=== PATIENT | female | born 1985 | race Caucasian/White ===

== ENCOUNTER 2016-04-26 12:03 | Inpatient (IN) | payer OTHER, MEDICAID ==
[2016-04-26 12:43] LABS: Urine Bilirubin Negative (Negative); Urine Glucose Negative (Negative); Urine Nitrite Negative (Negative)
[2016-04-26 13:03] LABS: Benzodiazepine Urine Screen None Detected (None Detect)
[2016-04-26 13:07] LABS: Hematocrit 40 % (35-47); Hemoglobin 13.5 g/dl (12.0-16.0); Mean Corpuscular HGB Conc 34 g/dl (31-36); Mean Corpuscular Hemoglobin 30 pg (27-31); Mean Corpuscular Volume 90 fL (80-97); Mean Platelet Volume 8 um3 (7.4-10.4); Red Blood Count 4.47 10^6/ul (4.0-5.4); Red Cell Distribution Width 13 % (10.5-15); White Blood Count 9.4 10^3/ul (3.5-10.8)
[2016-04-26 13:26] LABS: ALT 8 U/L (7-52); AST 14 U/L (13-39); Albumin 4.5 g/dL (3.2-5.2); Alkaline Phosphatase 66 U/L (34-104); Anion Gap 6 mmol/L (2-11); BUN/Creatinine Ratio 14.5 (8-20); Blood Urea Nitrogen 9 mg/dL (6-24); CO2 Carbon Dioxide 24 mmol/L (22-32); Calcium 9.5 mg/dL (8.6-10.3); Chloride 105 mmol/L (101-111); EGFR African American 142.6 (>60); EGFR Non-African American 110.9 (>60); Globulin 2.8 g/dL (2-4); Glucose 98 mg/dL (70-100); Potassium 3.8 mmol/L (3.5-5.0); Sodium 135 mmol/L (133-145); Total Protein 7.3 g/dL (6.4-8.9)
[2016-04-26 13:35] LABS: Acetaminophen < 15 mcg/mL; Alcohol < 10 mg/dL (<10); Salicylate < 2.50 mg/dL (<30)
[2016-04-26 13:45] LABS: TSH (Thyroid Stimulating Horm) 0.38 mcIU/mL (0.34-5.60)
[2016-04-26] MEDS ORDERED: Acetaminophen TAB* 325 MG PO PRN (16:27)
[2016-04-26] MEDS ORDERED: Al Hydrox/Mg Hydrox/Simet LIQ* 30 ML UDC PO PRN (16:27)
[2016-04-26] MEDS ORDERED: Haloperidol TAB* 5 MG PO PRN (16:30)
[2016-04-26] MEDS ORDERED: LORazepam TAB(*) 1 MG PO PRN (16:30)
--- NOTE | 2016-04-26 17:44 | ED ---
Nir Jauregui Karl, scribed for Ozzy Fontaine MD on 04/26/16 at 1225 . Psychiatric Complaint - HPI Summary HPI Summary: Pt is a 31 y/o female 941 brought in by police. Pt reportedly called the police and said that her had held up a box office clerk to her throat earlier this morning. Pt has an extensive hx of schizophrenia. - History Of Current Complaint Chief Complaint: EDMentalHealth Time Seen by Provider: 04/26/16 12:18 Hx Obtained From: Other: - Police Hx Last Menstrual Period: 03/19/15 Onset/Duration: Sudden Onset Timing: Constant Severity Initially: Moderate Severity Currently: Moderate Related History: Positive For: Prior Psychiatric Issues - Allergies/Home Medications Allergies/Adverse Reactions: Allergies Allergy/AdvReac Type Severity Reaction Status Date / Time No Known Allergies Allergy Verified 11/15/14 16:12 PMH/Surg Hx/FS Hx/Imm Hx Psychiatric History: Reports: Hx Schizophrenia Infectious Disease History: No Infectious Disease History: Denies: Traveled Outside the [place] in Last 30 Days - Social History Alcohol Use: None Substance Use Type: Reports: None Smoking Status (MU): Former Smoker - Additional Comments History Additional Comments: Full PMHx was limited because pt was immediately seen for a mental health evaluation Review of Systems Constitutional: Negative Eyes: Negative ENT: Negative Cardiovascular: Negative Respiratory: Negative Gastrointestinal: Negative Genitourinary: Negative Musculoskeletal: Negative Skin: Negative Neurological: Negative Psychological: Other - schizophrenic episode All Other Systems Reviewed And Are Negative: Yes Physical Exam Triage Information Reviewed: Yes Vital Signs On Initial Exam: Initial Vitals Temp Pulse Resp BP Pulse Ox 99.0 F 82 16 137/84 100 04/26/16 12:17 04/26/16 12:17 04/26/16 12:17 04/26/16 12:17 04/26/16 12:17 Vital Signs Reviewed: Yes Appearance: Positive: Well-Appearing, No Pain Distress Skin: Positive: Warm, Skin Color Reflects Adequate Perfusion, Dry Head/Face: Positive: Normal Head/Face Inspection Eyes: Positive: EOMI, SAMM ENT: Positive: Normal ENT inspection Neck: Positive: Supple, Nontender Respiratory/Lung Sounds: Positive: Clear to Auscultation, Breath Sounds Present Cardiovascular: Positive: RRR Abdomen Description: Positive: Nontender, Soft Bowel Sounds: Positive: Present Musculoskeletal: Positive: Normal, Strength/ROM Intact Neurological: Positive: Normal, Sensory/Motor Intact, Alert, Oriented to Person Place, Time Psychiatric: Positive: Affect/Mood Appropriate Diagnostics - Vital Signs Vital Signs Temp Pulse Resp BP Pulse Ox 04/26/16 12:17 99.0 F 82 16 137/84 100 - Laboratory Lab Results: Lab Results 04/26/16 04/26/16 04/26/16 Range/Units 12:25 12:25 12:55 WBC 9.4 (3.5-10.8) 10^3/ul RBC 4.47 (4.0-5.4) 10^6/ul Hgb 13.5 (12.0-16.0) g/dl Hct 40 (35-47) % MCV 90 (80-97) fL MCH 30 (27-31) pg MCHC 34 (31-36) g/dl RDW 13 (10.5-15) % Plt Count 256 (150-450) 10^3/ul MPV 8 (7.4-10.4) um3 Neut % (Auto) 77.6 (38-83) % Lymph % (Auto) 16.8 L (25-47) % [place] % (Auto) 5.0 (1-9) % Eos % (Auto) 0.2 (0-6) % Baso % (Auto) 0.4 (0-2) % Absolute Neuts (auto) 7.3 (1.5-7.7) 10^3/ul Absolute Lymphs (auto) 1.6 (1.0-4.8) 10^3/ul Absolute Monos (auto) 0.5 (0-0.8) 10^3/ul Absolute Eos (auto) 0 (0-0.6) 10^3/ul Absolute Basos (auto) 0 (0-0.2) 10^3/ul Absolute Nucleated RBC 0.01 10^3/ul Nucleated RBC % 0.1 Sodium (133-145) mmol/L Potassium (3.5-5.0) mmol/L Chloride (101-111) mmol/L Carbon Dioxide (22-32) mmol/L Anion Gap (2-11) mmol/L BUN (6-24) mg/dL Creatinine (0.51-0.95) mg/dL Est GFR ( Amer) (>60) Est GFR (Non-Af Amer) (>60) BUN/Creatinine Ratio (8-20) Glucose (70-100) mg/dL Calcium (8.6-10.3) mg/dL Total Bilirubin (0.2-1.0) mg/dL AST (13-39) U/L ALT (7-52) U/L Alkaline Phosphatase (34-104) U/L Total Protein (6.4-8.9) g/dL Albumin (3.2-5.2) g/dL Globulin (2-4) g/dL Albumin/Globulin Ratio (1-3) TSH (0.34-5.60) mcIU/mL Beta HCG, Quant mIU/mL Urine Color Straw Urine Appearance Clear Urine pH 5.0 (5-9) Ur Specific [place] 1.005 L (1.010-1.030) Urine Protein Negative (Negative) Urine Ketones Negative (Negative) Urine Blood Negative (Negative) Urine Nitrate Negative (Negative) Urine Bilirubin Negative (Negative) Urine Urobilinogen Negative (Negative) Ur Leukocyte Esterase Negative (Negative) Urine Glucose Negative (Negative) Salicylates (<30) mg/dL Urine Opiates Screen None detected (None Detect) Acetaminophen mcg/mL Ur Barbiturates Screen None detected (None Detect) Ur Phencyclidine Scrn None detected (None Detect) Ur Amphetamines Screen None detected (None Detect) U Benzodiazepines Scrn None detected (None Detect) Urine Cocaine Screen None detected (None Detect) U Cannabinoids Screen None detected (None Detect) Serum Alcohol (<10) mg/dL 04/26/16 Range/Units 12:55 WBC (3.5-10.8) 10^3/ul RBC (4.0-5.4) 10^6/ul Hgb (12.0-16.0) g/dl Hct (35-47) % MCV (80-97) fL MCH (27-31) pg MCHC (31-36) g/dl RDW (10.5-15) % Plt Count (150-450) 10^3/ul MPV (7.4-10.4) um3 Neut % (Auto) (38-83) % Lymph % (Auto) (25-47) % [place] % (Auto) (1-9) % Eos % (Auto) (0-6) % Baso % (Auto) (0-2) % Absolute Neuts (auto) (1.5-7.7) 10^3/ul Absolute Lymphs (auto) (1.0-4.8) 10^3/ul Absolute Monos (auto) (0-0.8) 10^3/ul Absolute Eos (auto) (0-0.6) 10^3/ul Absolute Basos (auto) (0-0.2) 10^3/ul Absolute Nucleated RBC 10^3/ul Nucleated RBC % Sodium 135 (133-145) mmol/L Potassium 3.8 (3.5-5.0) mmol/L Chloride 105 (101-111) mmol/L Carbon Dioxide 24 (22-32) mmol/L Anion Gap 6 (2-11) mmol/L BUN 9 (6-24) mg/dL Creatinine 0.62 (0.51-0.95) mg/dL Est GFR ( Amer) 142.6 (>60) Est GFR (Non-Af Amer) 110.9 (>60) BUN/Creatinine Ratio 14.5 (8-20) Glucose 98 (70-100) mg/dL Calcium 9.5 (8.6-10.3) mg/dL Total Bilirubin 0.50 (0.2-1.0) mg/dL AST 14 (13-39) U/L ALT 8 (7-52) U/L Alkaline Phosphatase 66 (34-104) U/L Total Protein 7.3 (6.4-8.9) g/dL Albumin 4.5 (3.2-5.2) g/dL Globulin 2.8 (2-4) g/dL Albumin/Globulin Ratio 1.6 (1-3) TSH 0.38 (0.34-5.60) mcIU/mL Beta HCG, Quant 27705.00 mIU/mL Urine Color Urine Appearance Urine pH (5-9) Ur Specific [place] (1.010-1.030) Urine Protein (Negative) Urine Ketones (Negative) Urine Blood (Negative) Urine Nitrate (Negative) Urine Bilirubin (Negative) Urine Urobilinogen (Negative) Ur Leukocyte Esterase (Negative) Urine Glucose (Negative) Salicylates < 2.50 (<30) mg/dL Urine Opiates Screen (None Detect) Acetaminophen < 15 mcg/mL Ur Barbiturates Screen (None Detect) Ur Phencyclidine Scrn (None Detect) Ur Amphetamines Screen (None Detect) U Benzodiazepines Scrn (None Detect) Urine Cocaine Screen (None Detect) U Cannabinoids Screen (None Detect) Serum Alcohol < 10 (<10) mg/dL Result Diagrams: 04/26/16 12:55 04/26/16 12:55 Lab Statement: Any lab studies that have been ordered have been reviewed, and results considered in the medical decision making process. Course/Dx - Course Assessment/Plan: Pt cleared for mental health evaluation at 12:30. ADMIT MHU STABLE - Differential Dx/Clinical Impression Provider Diagnosis: Mental health problem Discharge - Discharge Plan Condition: Stable [place] [place]: No Primary Care Phys,NOPCP [Primary Care Provider] - The documentation as recorded by the Nir dsouza Karl accurately reflects the service I personally performed and the decisions made by me, Ozzy Fontaine MD.
[2016-04-26] MEDS ORDERED: Lithium Carbonate ER* 450 MG TAB.ER PO SCH (21:00)
[2016-04-27] MEDS ORDERED: Vitamin THERAPEUTIC TAB PO SCH (09:00)
--- NOTE | 2016-04-27 12:25 | HP ---
DATE OF ADMISSION: 04/26/2016. DATE OF EVALUATION: 04/27/2016. IDENTIFICATION: Sunita Connors is a 31-year-old woman who reportedly carries a historical diagnosis of schizoaffective disorder, bipolar type, who has been admitted to the unit due to safety concerns raised by her report to police of her holding a knife to her throat at the end of a dispute over washing the dishes. She has had about ten psychiatric hospitalizations per her reckoning. Her parents report she was first hospitalized for a psychotic break in 2004 following smoking marijuana for the first time. She has a very poor memory for events and is a poor historian and is denying most psychiatric symptoms. HISTORY OF PRESENT ILLNESS: Information was gathered by interview of the patient and review of the electronic medical record. Ms. Connors states that she has been disappointment with the love she is getting from her , and that she also feels she does not know herself well and this is contributing to the current situation. She is making only furtive eye contact for moments at a time. She is slow to gather her thoughts and somewhat tangential in her reports. She is an unreliable historian. On review of psychiatric symptoms, she reports that her mood is fine. That she is not depressed. That she is not having any anhedonia, that she still enjoys singing, dancing, art, eating, taking cat naps. She denies feeling worthless or guilty. She reports that her sleep is "fine" and that she is rested after getting about eight hours of sleep a night with no shift of her sleep schedule. She reports that her energy is "very well." Her appetite she reports as "big. " She denies any difficulties with concentration or decision making. She states that she is more hopeful than hopeless. She denies any suicidal ideation at any time in her life. She names as a cruz stressor currently the relationship with her which she feels has cooled since their marriage in 2012. She denies ever any manic symptoms of grandiosity, euphoria, irritability, racing thoughts, talking fast, decreased need for sleep, or increased impulsivity. She reports that her anxiety is an average personal dose of hellish anxiety. She is unable to give me a numerical rating. At the same time, however, she states that she is not feeling particularly anxious here. She denies ever any panic attacks. She denies ever any trauma or PTSD symptoms of nightmares, flashbacks, avoidance , hypervigilance or numbing. She does report that she has overconcern about germs and will wash her hands whenever she has contact with contaminates, but again is unable to state to me any sort of estimate of the number of times that she washes her hands in the day. She denies any auditory or visual hallucinations or paranoid ideation. Again, her report is entirely minimizing of symptoms and does not match with her presentation as distracted, as slow to respond to questions as though she is attending to internal stimuli, and as somewhat constricted in her affect. MENTAL STATUS EXAMINATION: This is a woman in hospital scrubs with average grooming and hygiene, though moderately disheveled. She makes virtually no eye contact. Her speech has regular rate and rhythm, but somewhat low volume but audible and comprehensible, even in the background noise of the milieu. She is alert and oriented to person and place. She has a tangential and marginally organized thought process. She does appear to be distracted by internal stimuli. Her report of symptoms to questioning are that her mood is "fine," that she is not hearing or seeing any voices or visions, that she is not paranoid, that she does not have any thoughts to harm herself or others. She does, however, appear to be responding to internal stimuli. She presents with impaired insight and judgment. Her impulse control is intact. PAST PSYCHIATRIC HISTORY: She estimates about ten psychiatric hospitalizations , but states that she has "no idea when" and no idea where. She reports that hospitalizations "just disappear from my memory." She does report that her last prescriber was a doctor in [place]. She does not remember if it was a psychiatrist or a primary care physician. Report from her parents are that she has been diagnosed in the past with schizoaffective disorder with onset of psychotic illness in 2004 after smoking marijuana for the first time. She has been on lithium: she cannot recall when she last took it. She also mentions Wellbutrin. She reports that it has been some time since she has taken these, but again her recall to me is quite vague. It is unclear when she took her last dose of any of these medications. She denies ever having harmed herself in any way. Her parents report that she was cutting herself in a psychotic effort to exit a world she felt trapped in during her first psychotic episode in 2004. She denies ever having suicidal ideation or having made a suicide attempt. PAST MEDICAL HISTORY: Denies any. Denies any traumatic brain injury, seizures , syncopal episodes or heart problems. PAST SURGICAL HISTORY: Denies any. MEDICATIONS AT ADMISSION: The patient has reported that she has not taken medications in months and this is recorded in the EMR as no known home medications at the time of admission. FAMILY PSYCHIATRIC HISTORY: She reports that she does not know of anybody in her family with a psychiatric history. SUBSTANCE ABUSE HISTORY: She denies any abuse of alcohol or illicit substances. She reports not drinking any caffeinated beverages. She does not smoke by her report. SOCIAL HISTORY: She grew up in [place], [place]. She was home schooled from kindergarten to the first grade, attended school for a year or two, then second grade through high school again home schooled. She reported that she learned that she "has a different learning style." She is . She reports having moved around a fair amount recently. Again, history is limited from her report. Her father reports that her is 6 years younger and has a history of 6 or so psychiatric hospitalizations. He reports that he and his were against the marriage, but that Carries husbands family supported the marriage, which has been troubled. He reports that his daughter left the home she shares with her and her husbands family on day and moved into temporary lodging in [place] supported by [facility]. LEGAL HISTORY: Denies any. HISTORY OF VIOLENCE. Denies any. PHYSICAL EXAMINATION Last physical examination was in the emergency department. It was documented there that she had an entirely normal physical examination. She has declined a repeat physical examination. She has denied any active symptoms on review of chest pain, shortness of breath, nausea, vomiting, constipation, diarrhea, pain , rash, dizziness, ringing in the ears, blurred vision. VITAL SIGNS: Recorded on 04/26/2016 at 12:17 p.m.: Temperature 99.0, pulse 82 , respiratory 16, blood pressure 137/84 with a pulse ox reading of 100 percent saturation of hemoglobin on room air. LABORATORY VALUES: CBC with differential unremarkable with only a slightly low lymphocyte percentage of 16.8, but otherwise entirely within normal limits. Comprehensive metabolic panel entirely within normal limits with a positive beta HCG quantitative serum test at 12,389. She is . Urinalysis found dilute urine to 1.005, but otherwise entirely within normal limits. Toxicology screen detected no substances of abuse in urine or serum. No salicylates, no acetaminophen. ASSESSMENT AND PLAN: Ms. Connors is a 31-year-old woman who has reportedly been hospitalized about ten times for schizoaffective disorder, bipolar type, per report to the emergency department dock clerk by her parents. She is , and this will pose some challenges for her treatment here. I will ask an conveyor maintenance mechanic here to come to meet with her to talk about the risks of medications that would be beneficial for treatment of her exacerbation of her schizoaffective disorder, including lithium, Seroquel, Zyprexa and other antipsychotic medications, also antidepressant medications. I would like for her to hear from an expert in the effects of these medications on development so that she can make a fully informed decision as to how she would want to treat her exacerbation of illness at the same time as she carries her to term, which she says she wants to do. Her time away from her from September to February may raise issues with regard to paternity depending on the result of an U/S. We will be gathering further collateral from the family. We will be encouraging her to make use of the therapeutic milieu and groups. Aftercare will likely be to a community health clinic. DIAGNOSIS: Schizoaffective disorder, bipolar type. [id number]/[facility] #: [id number] RHIANNON
[2016-04-27] MEDS ORDERED: QUEtiapine TAB* 100 MG PO SCH (21:00)
[2016-04-28] MEDS ORDERED: QUEtiapine TAB* 100 MG PO SCH (14:08)
--- NOTE | 2016-04-28 14:11 | PN ---
Subjective - Subjective Service Type: 90194 Hosp care 15 min low complexity Subjective: Sunita appears somewhat confused. She reports all is well. She does not have much else to report. She agrees to increased dose of Seroquel to 150 mg tonight. Spoke with her father again. Texted him patient phone number to speak with Sunita, and unit fax number to send us a synopsis of her psychiatric care. Objective - Appearance Appearance: Well Developed/Nourished, Healthy Appearing Dysmorphic Features: No Hygiene: Normal Grooming: Well Kept - Behavior Psychomotor Activities: Normal Exhibits Abnormal Movement: No - Attitude and Relatedness Attitude and Relatedness: Cooperative Eye Contact: Poor - Speech Quality: Unpressured Latencies: Normal Quantity: Terse - Mood Patient's Decription of Mood: "Fine" - Affect Observed Affect: Unvariable Affect Consistent with: Euthymia - Thought Process Patient's Thought Process: Coherent, Goal Directed Thought Content: No Passive Wish, No Suicidal Planning, No Homicidal Ideation, No Paranoid Ideation - Sensorium Experiencing Hallucinations: No, Sensorium is Clear Type of Hallucinations: Visual: No, Auditory: No, Command: No - Level of Consciousness Level of Consciousness: Alert Orientation: Yes Intact, Yes Orientated to Time, Yes Orientated to Place, Yes Orientated to Person - Impulse Control Impulse Control: Intact - Insight and Judgement Insight and Judgement: Impaired - Group Participation Particating in Group Activities: Yes - Medication Management Medication Management Adherence: Yes Assessment - Assessment Merits Inpatient Hospitalization: For Immediate Safety, For Stabilization, To Initiate Treatment, For Ongoing Evaluation, For Discharge Planning, Pending Safe DC Plan Inpatient DSM-IV Dx: Schizoaffective disorder, bipolar type. Clinical Impression: Ms. Davies is a 31-year-old woman who has reportedly been hospitalized about ten times for schizoaffective disorder, bipolar type, per report to the emergency department efficiency analyst by her parents. She is , and this will pose some challenges for her treatment here. I will ask an patient insurance clerk here to come to meet with her to talk about the risks of medications that would be beneficial for treatment of her exacerbation of her schizoaffective disorder, including lithium, Seroquel, Zyprexa and other antipsychotic medications, also antidepressant medications. I would like for her to hear from an expert in the effects of these medications on development so that she can make a fully informed decision as to how she would want to treat her exacerbation of illness at the same time as she carries her to term, which she says she wants to do. Her time away from her from September to February may raise issues with regard to paternity depending on the result of an U/S. We will be gathering further collateral from the family. We will be encouraging her to make use of the therapeutic milieu and groups. Aftercare will likely be to a [facility]. 04.28.16 Sunita today appears calm but vacant. She has little to say in response to questions and offers no spontaneous communication. Awaiting effect of Seroquel as we titrate up dose. Awaiting collateral fax from parents this evening. Plan - Plan Treatment Plan: Name: SUNITA DAVIES Birthdate: 1985 [id number] Titrate up Seroquel dose to 150 mg tonight. Gather collateral. Monitor MS and safety. Encourage groups/milieu. Dispo pending per dialogue with current codomicilers and referral to outpatient care. Medications: Current Medications Quetiapine Fumarate (Seroquel Tab*) 100 mg PO BEDTIME REGI Last Admin: 04/27/16 21:38 Dose: 100 mg - Discharge Plan Discharge Plan: Outpatient Follow Up
[2016-04-29] MEDS: Prenatal Vitamin TAB PO SCH (12:28)
--- NOTE | 2016-04-29 14:10 | PN ---
Subjective - Subjective Service Type: 32127 Hosp care 15 min low complexity Subjective: Sunita remains flat and poorly responsive, but shows some slight signs of improvement in comprehension and response to questions. Objective - Appearance Appearance: Healthy Appearing Dysmorphic Features: No Hygiene: Normal Grooming: Fairly Well Kept - Behavior Psychomotor Activities: Abnormal-Decreased - sits idly much of day Exhibits Abnormal Movement: No - Attitude and Relatedness Attitude and Relatedness: Withdrawn Eye Contact: Poor - Speech Quality: Unpressured Latencies: Normal Quantity: Terse - Mood Patient's Decription of Mood: "Good" - Affect Observed Affect: Depressed Affect Consistent with: Dysphoria - Thought Process Patient's Thought Process: Impoverished Thought Content: No Passive Wish, No Suicidal Planning, No Homicidal Ideation, No Paranoid Ideation - Sensorium Experiencing Hallucinations: No, Sensorium is Clear Type of Hallucinations: Visual: No, Auditory: No, Command: No - Level of Consciousness Level of Consciousness: Alert - Impulse Control Impulse Control: Intact - Insight and Judgement Insight and Judgement: Impaired - Group Participation Particating in Group Activities: No - Medication Management Medication Management Adherence: Yes Assessment - Assessment Merits Inpatient Hospitalization: For Stabilization, For Ongoing Evaluation, Pending Safe DC Plan Inpatient DSM-IV Dx: Schizoaffective disorder, bipolar type. Clinical Impression: Ms. Davies is a 31-year-old woman who has reportedly been hospitalized about ten times for schizoaffective disorder, bipolar type, per report to the emergency department brand lead by her parents. She is , and this will pose some challenges for her treatment here. I will ask an central office technician here to come to meet with her to talk about the risks of medications that would be beneficial for treatment of her exacerbation of her schizoaffective disorder, including lithium, Seroquel, Zyprexa and other antipsychotic medications, also antidepressant medications. I would like for her to hear from an expert in the effects of these medications on development so that she can make a fully informed decision as to how she would want to treat her exacerbation of illness at the same time as she carries her to term, which she says she wants to do. Her time away from her from September to February may raise issues with regard to paternity depending on the result of an U/S. We will be gathering further collateral from the family. We will be encouraging her to make use of the therapeutic milieu and groups. Aftercare will likely be to a [facility]. 04.28.16 Sunita today appears calm but vacant. She has little to say in response to questions and offers no spontaneous communication. Awaiting effect of Seroquel as we titrate up dose. Awaiting collateral fax from parents this evening. 04.29.16 Remains calm with impoverished thought. Agrees to central office technician consult. Not attending groups, saying day room is locked when she tries to join groups. Compliant with Seroquel. Plan - Plan Treatment Plan: Name: SUNITA DAVIES Birthdate: 1985 [id number] Titrate up Seroquel dose to 200 mg tonight. Gather collateral. Monitor MS and safety. Encourage groups/milieu. Dispo pending per dialogue with current codomicilers and referral to outpatient care. Medications: Current Medications Multivitamins ( Vitamin Tab*) 1 tab PO DAILY [facility] Last Admin: 04/29/16 12:28 Dose: 1 tab Quetiapine Fumarate (Seroquel Tab*) 200 mg PO BEDTIME REGI - Discharge Plan Discharge Plan: Outpatient Follow Up
--- NOTE | 2016-04-29 14:51 | RAD ---
Indication: Early dating. Beta hCG 12,000. Unsure of LMP. Comparison: None. Technique: Transabdominal obstetrical ultrasound. Report: Single intrauterine gestational sac measuring 1.25 cm mean diameter corresponding to 6 weeks 0 days. Solitary pole visualized with 0.21 cm crown-rump length corresponding to 5 weeks 6 days. No movement or cardiac activity visualized which may be technical due to early gestational age. Negative for free pelvic fluid. 3.1 x 2.4 x 2.2 cm RIGHT ovary is remarkable for a moderately well-circumscribed grossly anechoic lesion measuring up to 1.6 x 1.1 x 1.5 cm which is immediately adjacent to a macroscopic calcification measuring up to 0.7 cm. A dermoid cyst is not excluded. The patient refused transvaginal exam for further assessment at this time. The LEFT ovary could not be visualized. No extra ovarian adnexal region lesions evident. IMPRESSION: 1. Solitary intrauterine gestation with AUA 6 weeks 0 days. Corresponding CAMRYN December 23, 2016. 2. No movement or cardiac activity visualized which may be technical due to early gestational age. Clinical and sonographic follow-up suggested. 3. Small cystic lesion and adjacent macroscopic calcification in the RIGHT ovary; a dermoid cyst is not excluded. Further assessment with transvaginal pelvic ultrasound when clinically feasible suggested. 4. The LEFT ovary could not be visualized. 5. No extra ovarian adnexal region lesions evident.
[2016-04-29] MEDS: QUEtiapine TAB* 100 MG PO SCH (20:18)
--- NOTE | 2016-04-29 23:28 | CONS ---
Amended report to enter date on report. CONSULT NOTE FOR OBSTETRICS: DATE: 04/29/2016. CHIEF COMPLAINT: Early . HISTORY OF PRESENT ILLNESS: This is a 31-year-old 1, para 0 who is admitted to the hospital on the psychiatric unit for a psychotic break. She has had multiple previous admissions based on the note from the Psychiatry. She apparently currently was not on any medications prior to her admission, currently being maintained on Seroquel and currently is still less than responsive or interactive. The patient was interviewed briefly and was not a good historian nor very communicative. Based on her ultrasound, she is approximately 5 weeks' with what looks like a viable and possible small dermoid cyst . OB has been mainly consulted to help with her medications and the patient and I did discuss her medications she has been on in the past and I explained the goals of therapy, which would be to keep her treated and not so depressed or psychotic that she is a danger to herself or others . Another goal would be that she is functional and can take part in her care. Other goals of treatment is to try to not use harmful medications and to get ongoing care. Currently, the Seroquel seems like a good choice as this is a single agent and it treats both depression and psychosis and from that perspective it sounds like a good choice. It seems to be relatively safe for early in . Her psychiatrist and I did discuss her use of lithium and I feel that this should be avoided . Other choices of Haldol would be used as necessary if you feel that the Seroquel is not helping her. Again, at this point, there is little else to do in care. I do not recommend any further ultrasounds during this hospitalization( provided it does not last more than a month) and if she need further help with managing her medications, please do not hesitate to contact the on-call employee services manager. We should be arranging followup once she is close to discharge. Please do not hesitate to contact the service if you have other questions. For now, we will not be rounding on her on a regular basis. [id number]/[facility] #: [id number] RHIANNON
[2016-04-30] MEDS: Prenatal Vitamin TAB PO SCH (09:22)
[2016-04-30] MEDS: QUEtiapine TAB* 100 MG PO SCH (20:23)
[2016-05-01] MEDS: Prenatal Vitamin TAB PO SCH (10:01)
--- NOTE | 2016-05-01 19:35 | PN ---
Subjective - Subjective Service Type: 44895 Hosp care 15 min low complexity Subjective: Sunita continues to isolative and guarded. Makes poor eye contact and reluctant to talk. Denies any physical or psychiatric issues. Objective - Appearance Appearance: Thin Framed Dysmorphic Features: No Hygiene: Normal Grooming: Fairly Well Kept - Behavior Psychomotor Activities: Abnormal-Decreased Exhibits Abnormal Movement: No - Attitude and Relatedness Attitude and Relatedness: Cooperative - Speech Quality: Unpressured Latencies: Long Quantity: Terse - Mood Patient's Decription of Mood: "Fine" - Affect Observed Affect: Constricted Affect Consistent with: Dysphoria - Thought Process Patient's Thought Process: Coherent, Goal Directed Thought Content: No Passive Wish, No Suicidal Planning, No Homicidal Ideation, No Paranoid Ideation - Sensorium Experiencing Hallucinations: No, Sensorium is Clear Type of Hallucinations: Visual: No, Auditory: No, Command: No - Level of Consciousness Level of Consciousness: Alert Orientation: Yes Intact, Yes Orientated to Time, Yes Orientated to Place, Yes Orientated to Person - Impulse Control Impulse Control: Intact - Insight and Judgement Insight and Judgement: Poor - Group Participation Particating in Group Activities: No - Medication Management Medication Management Adherence: Yes Assessment - Assessment Merits Inpatient Hospitalization: For Stabilization, For Ongoing Evaluation, Pending Safe DC Plan Inpatient DSM-IV Dx: Schizoaffective disorder, bipolar type. Plan - Plan Treatment Plan: Name: SUNITA DAVIES Birthdate: 1985 [id number] Continued Medication Management: Continue Outpt Medication Medications: Current Medications Multivitamins ( Vitamin Tab*) 1 tab PO DAILY [facility] Last Admin: 05/01/16 10:01 Dose: 1 tab Quetiapine Fumarate (Seroquel Tab*) 200 mg PO BEDTIME [facility] Last Admin: 04/30/16 20:23 Dose: 200 mg - Discharge Plan Discharge Plan: Outpatient Follow Up Outpatient Program: [facility]
[2016-05-01] MEDS: QUEtiapine TAB* 100 MG PO SCH (20:43)
--- NOTE | 2016-05-02 08:51 | PN ---
Subjective - Subjective Service Type: 07373 Hosp care 15 min low complexity Subjective: Reports without making any eye contact that her mood is 'good', that she is ' experiencing the newness of things', that she is having no troubles with the Seroquel. She agrees that she is not ready for discharge today. She did not want to talk about the situation with her . Objective - Appearance Appearance: Well Developed/Nourished, Healthy Appearing Dysmorphic Features: No Hygiene: Normal Grooming: Well Kept - Behavior Psychomotor Activities: Normal Exhibits Abnormal Movement: No - Attitude and Relatedness Attitude and Relatedness: Cooperative Eye Contact: Poor - Speech Quality: Unpressured Latencies: Normal Quantity: Terse - Mood Patient's Decription of Mood: "Good" - Affect Observed Affect: Unvariable Affect Consistent with: Dysphoria - Thought Process Patient's Thought Process: Impoverished Thought Content: No Passive Wish, No Suicidal Planning, No Homicidal Ideation, No Paranoid Ideation - Sensorium Experiencing Hallucinations: No, Sensorium is Clear Type of Hallucinations: Visual: No, Auditory: No, Command: No - Level of Consciousness Level of Consciousness: Alert Orientation: Yes Orientated to Place, Yes Orientated to Person - Impulse Control Impulse Control: Intact - Insight and Judgement Insight and Judgement: Impaired - Group Participation Particating in Group Activities: Yes - Medication Management Medication Management Adherence: Yes Assessment - Assessment Merits Inpatient Hospitalization: For Stabilization, To Initiate Treatment, For Ongoing Evaluation, For Discharge Planning, Pending Safe DC Plan Inpatient DSM-IV Dx: Schizoaffective disorder, bipolar type. Clinical Impression: Ms. Davies is a 31-year-old woman who has reportedly been hospitalized about ten times for schizoaffective disorder, bipolar type, per report to the emergency department government operations consultant by her parents. She is , and this will pose some challenges for her treatment here. I will ask an reading tutor here to come to meet with her to talk about the risks of medications that would be beneficial for treatment of her exacerbation of her schizoaffective disorder, including lithium, Seroquel, Zyprexa and other antipsychotic medications, also antidepressant medications. I would like for her to hear from an expert in the effects of these medications on development so that she can make a fully informed decision as to how she would want to treat her exacerbation of illness at the same time as she carries her to term, which she says she wants to do. Her time away from her from September to February may raise issues with regard to paternity depending on the result of an U/S. We will be gathering further collateral from the family. We will be encouraging her to make use of the therapeutic milieu and groups. Aftercare will likely be to a [facility] clinic. 04.28.16 Sunita today appears calm but vacant. She has little to say in response to questions and offers no spontaneous communication. Awaiting effect of Seroquel as we titrate up dose. Awaiting collateral fax from parents this evening. 04.29. Remains calm with impoverished thought. Agrees to reading tutor consult. Not attending groups, saying day room is locked when she tries to join groups. Compliant with Seroquel. 05.02.16 Attending about 1/2 of groups. Still virtually no eye contact, but slightly more engaged in interview. Med compliant. Calm and cooperative, but with impoverished thought. Plan - Plan Treatment Plan: Name: SUNITA DAVIES Birthdate: 1985 [id number] Titrate up Seroquel dose to 300 mg tonight. Gather collateral. Monitor MS and safety. Encourage groups/milieu. Dispo pending per dialogue with current codomicilers and referral to outpatient care. Medications: Current Medications Multivitamins ( Vitamin Tab*) 1 tab PO DAILY [facility] Last Admin: 05/01/16 10:01 Dose: 1 tab Quetiapine Fumarate (Seroquel Tab*) 200 mg PO BEDTIME [facility] Last Admin: 05/01/16 20:43 Dose: 200 mg - Discharge Plan Discharge Plan: Outpatient Follow Up
[2016-05-02] MEDS: Prenatal Vitamin TAB PO SCH (09:33)
[2016-05-02 10:01] LABS: Syphilis Index < 0.1 Index
[2016-05-02] MEDS: QUEtiapine TAB* 300 MG PO SCH (21:49)
[2016-05-03] MEDS: Prenatal Vitamin TAB PO SCH (09:06)
--- NOTE | 2016-05-03 17:32 | PN ---
Subjective - Subjective Service Type: 11504 Hosp care 15 min low complexity Subjective: Sunita continues to make no eye contact. She gives an 'all is well' report of good mood, no hallucinations or dangerous intent or plan. Reports spending her day stretching, resting, eating and taking naps. Father Murtaza called her 2 days ago, he says, and she hung up on him. Murtaza reports that she reached out to him and his yesterday to contact her to tell him she was discharging today. She is not ready for discharge today. Objective - Appearance Appearance: Healthy Appearing Dysmorphic Features: No Hygiene: Normal Grooming: Well Kept - Behavior Psychomotor Activities: Normal Exhibits Abnormal Movement: No - Attitude and Relatedness Attitude and Relatedness: Psychotically Related Eye Contact: Fair - Speech Quality: Unpressured Latencies: Normal Quantity: Appropriate - Mood Patient's Decription of Mood: "Good" - Affect Observed Affect: Unvariable Affect Consistent with: Dysphoria - Thought Process Patient's Thought Process: Impoverished Thought Content: No Passive Wish, No Suicidal Planning, No Homicidal Ideation, No Paranoid Ideation - Sensorium Experiencing Hallucinations: No, Sensorium is Clear Type of Hallucinations: Visual: No, Auditory: No, Command: No - Level of Consciousness Level of Consciousness: Alert Orientation: Yes Intact, Yes Orientated to Time, Yes Orientated to Place, Yes Orientated to Person - Impulse Control Impulse Control: Intact - Insight and Judgement Insight and Judgement: Poor - Group Participation Particating in Group Activities: No Group Participation Comments: Only larger, less psychotherapy-focused groups attended. - Medication Management Medication Management Adherence: Yes Assessment - Assessment Merits Inpatient Hospitalization: For Immediate Safety, For Stabilization, To Initiate Treatment, For Discharge Planning Inpatient DSM-IV Dx: Schizoaffective disorder, bipolar type. Clinical Impression: Ms. Davies is a 31-year-old woman who has reportedly been hospitalized about ten times for schizoaffective disorder, bipolar type, per report to the emergency department filter press tender by her parents. She is , and this will pose some challenges for her treatment here. I will ask an network systems operator here to come to meet with her to talk about the risks of medications that would be beneficial for treatment of her exacerbation of her schizoaffective disorder, including lithium, Seroquel, Zyprexa and other antipsychotic medications, also antidepressant medications. I would like for her to hear from an expert in the effects of these medications on development so that she can make a fully informed decision as to how she would want to treat her exacerbation of illness at the same time as she carries her to term, which she says she wants to do. Her time away from her from September to February may raise issues with regard to paternity depending on the result of an U/S. We will be gathering further collateral from the family. We will be encouraging her to make use of the therapeutic milieu and groups. Aftercare [facility] to a [facility] clinic. 04.28.16 Sunita today appears calm but vacant. She has little to say in response to questions and offers no spontaneous communication. Awaiting effect of Seroquel as we titrate up dose. Awaiting collateral fax from parents this evening. 04.29.16 Remains calm with impoverished thought. Agrees to network systems operator consult. Not attending groups, saying day room is locked when she tries to join groups. Compliant with Seroquel. 05.02.16 Attending about 1/2 of groups. Still virtually no eye contact, but slightly more engaged in interview. Med compliant. Calm and cooperative, but with impoverished thought. 05.03.16 Sunita has shown few signs of improving organization of thought and behavior. U/S shows a 6 week . No fax outlining history of psychiatric care received from parents. Plan - Plan Treatment Plan: Name: SUNITA DAVIES Birthdate: 1985 [id number] Asked her father to refax outline of psychiatric history. Continue Seroquel dose at 300 mg at bedtime. Gather collateral. Monitor MS and safety. Encourage groups/milieu. Dispo pending per dialogue with current codomicilers and referral to outpatient care. May not be quite ready for more productive conversation with network systems operator, will continue to consider this request to Ob- [employer] as patient shows signs of improved mental status. Medications: Current Medications Multivitamins ( Vitamin Tab*) 1 tab PO DAILY [facility] Last Admin: 05/03/16 09:06 Dose: 1 tab Quetiapine Fumarate (Seroquel Tab*) 300 mg PO BEDTIME [facility] Last Admin: 05/02/16 21:49 Dose: 300 mg - Discharge Plan Discharge Plan: Outpatient Follow Up
[2016-05-03] MEDS: QUEtiapine TAB* 300 MG PO SCH (21:17)
[2016-05-04] MEDS: Prenatal Vitamin TAB PO SCH (08:56)
[2016-05-04] MEDS: QUEtiapine TAB* 300 MG PO SCH (20:39)
[2016-05-05] MEDS: Prenatal Vitamin TAB PO SCH (08:36)
[2016-05-05] MEDS: QUEtiapine TAB* 300 MG PO SCH (21:03)
[2016-05-06] MEDS: Prenatal Vitamin TAB PO SCH (09:04)
--- NOTE | 2016-05-06 13:53 | PN ---
Subjective - Subjective Service Type: 99858 Hosp care 15 min low complexity Subjective: Sunita gives an 'all is well' subjective report, but with no eye contact and with subvocalizations between responses, which is new. Also offering 'may God Bless You' benedictions, also new. Vocal tone is flat now, more so than on admission. Parents have expressed concern about the apparent severity of the current psychotic break. Social work has gathered that her is planning divorce. She had nothing to say to me about this when I asked her about it. Objective - Appearance Appearance: Healthy Appearing Dysmorphic Features: No Hygiene: Normal Grooming: Fairly Well Kept - Behavior Psychomotor Activities: Abnormal-Decreased Exhibits Abnormal Movement: No - Attitude and Relatedness Attitude and Relatedness: Regressed Eye Contact: Poor - nearly absent in fact - Speech Quality: Unpressured Latencies: Normal Quantity: Terse - Mood Patient's Decription of Mood: "Fine" - Affect Affect Consistent with: Dysphoria - Thought Process Patient's Thought Process: Disorganized Thought Content: No Passive Wish, No Suicidal Planning, No Homicidal Ideation, No Paranoid Ideation - Sensorium Experiencing Hallucinations: No, Sensorium is Clear Type of Hallucinations: Visual: No, Auditory: No, Command: No - Level of Consciousness Level of Consciousness: Alert Orientation: Yes Orientated to Place, Yes Orientated to Person - Impulse Control Impulse Control: Intact - Insight and Judgement Insight and Judgement: Impaired - Group Participation Particating in Group Activities: No - Medication Management Medication Management Adherence: Yes Assessment - Assessment Merits Inpatient Hospitalization: For Immediate Safety, For Stabilization, To Initiate Treatment, For Ongoing Evaluation, For Discharge Planning, Pending Safe DC Plan Inpatient DSM-IV Dx: Schizoaffective disorder, bipolar type. Clinical Impression: Ms. Davies is a 31-year-old woman who has reportedly been hospitalized about ten times for schizoaffective disorder, bipolar type, per report to the emergency department luster repairer by her parents. She is , and this will pose some challenges for her treatment here. I will ask an senior analyst here to come to meet with her to talk about the risks of medications that would be beneficial for treatment of her exacerbation of her schizoaffective disorder, including lithium, Seroquel, Zyprexa and other antipsychotic medications, also antidepressant medications. I would like for her to hear from an expert in the effects of these medications on development so that she can make a fully informed decision as to how she would want to treat her exacerbation of illness at the same time as she carries her to term, which she says she wants to do. Her time away from her from September to February may raise issues with regard to paternity depending on the result of an U/S. We will be gathering further collateral from the family. We will be encouraging her to make use of the therapeutic milieu and groups. Aftercare will likely be to a [facility] clinic. 04.28.16 Sunita today appears calm but vacant. She has little to say in response to questions and offers no spontaneous communication. Awaiting effect of Seroquel as we titrate up dose. Awaiting collateral fax from parents this evening. 04.29.16 Remains calm with impoverished thought. Agrees to senior analyst consult. Not attending groups, saying day room is locked when she tries to join groups. Compliant with Seroquel. 05.02.16 Attending about 1/2 of groups. Still virtually no eye contact, but slightly more engaged in interview. Med compliant. Calm and cooperative, but with impoverished thought. 05.03.16 Sunita has shown few signs of improving organization of thought and behavior. U/S shows a 6 week . No fax outlining history of psychiatric care received from parents. 05.06.16 Sunita is showing some signs of changed mental status, but no signs of recovery. She remains completely gaze avoidant, and is now making slightly more yarsani remarks and subvocalizing. She has not attended groups. She is medication compliant with Seroquel. Collateral reports indicate her marriage may be ending. Family in [place] is concerned that her current presentation is of a severe relapse into her psychotic illness. Plan - Plan Treatment Plan: Name: SUNITA DAVIES Birthdate: 1985 [id number] Received from family outline of psychiatric history. Increase Seroquel dose to 400 mg at bedtime. Monitor MS and safety. Encourage groups/milieu (none yet) . Dispo complicated now by and dissolution of marriage. Not yet ready for more productive conversation with senior analyst, will continue to consider this request to Ob-Lead Portfolio Manager as patient shows signs of improved mental status. Medications: Current Medications Multivitamins ( Vitamin Tab*) 1 tab PO DAILY [facility] Last Admin: 12/30/16 09:04 Dose: 1 tab Quetiapine Fumarate (Seroquel Tab*) 400 mg PO BEDTIME [facility] - Discharge Plan Discharge Plan: Consider Longer Term Tx
[2016-05-06] MEDS: QUEtiapine TAB* 100 MG PO SCH (20:29)
[2016-05-07] MEDS: Prenatal Vitamin TAB PO SCH (08:36)
[2016-05-07] MEDS: QUEtiapine TAB* 100 MG PO SCH (20:57)
[2016-05-08] MEDS: Prenatal Vitamin TAB PO SCH (09:24)
[2016-05-08] MEDS: QUEtiapine TAB* 100 MG PO SCH (20:30)
[2016-05-09] MEDS: Prenatal Vitamin TAB PO SCH (09:57)
--- NOTE | 2016-05-09 15:47 | PN ---
Subjective - Subjective Service Type: 25049 Hosp care 15 min low complexity Subjective: Only thing Sunita urbina to me was "nausious". Then she became almost mute. Later appeared internally occupied and mumbling to self which is a detorioration from my observation when I saw her last time. Objective - Appearance Appearance: Thin Framed Dysmorphic Features: No Hygiene: Normal Grooming: Disheveled - Behavior Psychomotor Activities: Abnormal-Increased Exhibits Abnormal Movement: No - Attitude and Relatedness Attitude and Relatedness: Psychotically Related Eye Contact: Poor - Speech Quality: Unpressured Latencies: Long Quantity: Terse - Mood Patient's Decription of Mood: None - Affect Observed Affect: Unvariable Affect Consistent with: Dysphoria - Thought Process Patient's Thought Process: Disorganized, Impoverished Thought Content: No Passive Wish, No Suicidal Planning, No Homicidal Ideation, No Paranoid Ideation - Sensorium Experiencing Hallucinations: Yes Type of Hallucinations: Visual: No, Auditory: Yes, Command: No - Level of Consciousness Level of Consciousness: Alert Orientation: No Intact, No Orientated to Time, No Orientated to Place, No Orientated to Person - Impulse Control Impulse Control: Tenuous - Insight and Judgement Insight and Judgement: Impaired - Group Participation Particating in Group Activities: No - Medication Management Medication Management Adherence: Yes Assessment - Assessment Merits Inpatient Hospitalization: For Immediate Safety, For Stabilization, Diagnosis Determination, For Ongoing Evaluation, Pending Safe DC Plan Inpatient DSM-IV Dx: Schizoaffective disorder, bipolar type. Plan - Plan Treatment Plan: Name: SUNITA DAVIES Birthdate: 1985 [id number] Continued Medication Management: Continue Outpt Medication Medications: Current Medications Multivitamins ( Vitamin Tab*) 1 tab PO DAILY [facility] Last Admin: 05/09/16 09:57 Dose: 1 tab Quetiapine Fumarate (Seroquel Tab*) 400 mg PO BEDTIME [facility] Last Admin: 05/08/16 20:30 Dose: 400 mg - Discharge Plan Discharge Plan: Consider Longer Term Tx
[2016-05-09] MEDS: QUEtiapine TAB* 100 MG PO SCH (20:19)
[2016-05-10] MEDS: Prenatal Vitamin TAB PO SCH (10:04)
--- NOTE | 2016-05-10 11:49 | PN ---
[facility]: Group Therapy Note - Service Type Service Type: 34493 Group Psychotherapy - Cognitive Behavioral Therapy (CBT): Sunita attended cbt programming for the first time since her admission. She presented with good affect, and made fair eye contact. She made brief spontaneous comments, but did not elaborate on group discussion.
[2016-05-10] MEDS: QUEtiapine TAB* 100 MG PO SCH (20:13)
[2016-05-11] MEDS: Prenatal Vitamin TAB PO SCH (08:19)
--- NOTE | 2016-05-11 11:27 | PN ---
[facility]: Group Therapy Note - Service Type Service Type: 15530 Group Psychotherapy - Cognitive Behavioral Therapy (CBT): Sunita was responsive to prompts to discuss her relevant history, describing her family's history on moving around the [place] in an over inclusive fashion. However her insight and relatedness appear to be improving markedly, as she now make good eye contact and present with euthymic mood, even smiling when peers were discussing delusional beliefs. She described her interest in moving to [place] to be near her parents, citing how she will need their supports for taking care of the baby.
--- NOTE | 2016-05-11 15:47 | PN ---
Progress Note - Progress Note SOAP: Subjective: []Pt seems to be doing better. Hopeful about Objective: []VSS AFE Neuro: alert oriented/ appropriate questions Assessment: []Pt 31 yo G1 at 7 5/7 week with psychotic break now stable on Seroquel Plan: [] Reviewed with patient Cat C Seroquel but given her stability and clinical improvement the benefits outweigh the risks . [place] which seems like an insightful choice. Pt recognizes importance of close follow up with OB once she moves to [place] All questions answered . Time spent face to face greater than 15 '.
--- NOTE | 2016-05-11 15:58 | PN ---
Subjective - Subjective Service Type: 87127 Hosp care 15 min low complexity Subjective: Sunita continues to show the most prominent sign of improvement in making eye contact and being more fully engaged in conversation. She is smiling and showing appropriate affect, and has good vocal tonality now. She says she feels she is nearing readiness to discharge to be in [facility] with her parents. She has no physical complaints. Objective - Appearance Appearance: Well Developed/Nourished, Healthy Appearing Dysmorphic Features: No Hygiene: Normal Grooming: Well Kept - Behavior Psychomotor Activities: Normal Exhibits Abnormal Movement: No - Attitude and Relatedness Attitude and Relatedness: Well Related Eye Contact: Good - Speech Quality: Unpressured Latencies: Normal Quantity: Appropriate - Mood Patient's Decription of Mood: "Good" - Affect Observed Affect: Good Affect Consistent with: Euthymia - Thought Process Patient's Thought Process: Coherent, Goal Directed Thought Content: No Passive Wish, No Suicidal Planning, No Homicidal Ideation, No Paranoid Ideation - Sensorium Experiencing Hallucinations: No, Sensorium is Clear Type of Hallucinations: Visual: No, Auditory: No, Command: No - Level of Consciousness Level of Consciousness: Alert Orientation: Yes Intact, Yes Orientated to Time, Yes Orientated to Place, Yes Orientated to Person - Impulse Control Impulse Control: Intact - Insight and Judgement Insight and Judgement: Fair - Group Participation Particating in Group Activities: Yes - Medication Management Medication Management Adherence: Yes Assessment - Assessment Merits Inpatient Hospitalization: For Stabilization, Consolidate Improvements, For Discharge Planning Inpatient DSM-IV Dx: Schizoaffective disorder, bipolar type. Clinical Impression: Ms. Davies is a 31-year-old woman who has reportedly been hospitalized about ten times for schizoaffective disorder, bipolar type, per report to the emergency department edge cutting machine operator by her parents. She is , and this will pose some challenges for her treatment here. I will ask an geodetic engineer here to come to meet with her to talk about the risks of medications that would be beneficial for treatment of her exacerbation of her schizoaffective disorder, including lithium, Seroquel, Zyprexa and other antipsychotic medications, also antidepressant medications. I would like for her to hear from an expert in the effects of these medications on development so that she can make a fully informed decision as to how she would want to treat her exacerbation of illness at the same time as she carries her to term, which she says she wants to do. Her time away from her from September to February may raise issues with regard to paternity depending on the result of an U/S. We will be gathering further collateral from the family. We will be encouraging her to make use of the therapeutic milieu and groups. Aftercare will likely be to a [facility]. 04.28.16 Sunita today appears calm but vacant. She has little to say in response to questions and offers no spontaneous communication. Awaiting effect of Seroquel as we titrate up dose. Awaiting collateral fax from parents this evening. 04.29.16 Remains calm with impoverished thought. Agrees to geodetic engineer consult. Not attending groups, saying day room is locked when she tries to join groups. Compliant with Seroquel. 05.02.16 Attending about 1/2 of groups. Still virtually no eye contact, but slightly more engaged in interview. Med compliant. Calm and cooperative, but with impoverished thought. 05.03.16 Sunita has shown few signs of improving organization of thought and behavior. U/S shows a 6 week . No fax outlining history of psychiatric care received from parents. 30.16 Sunita is showing some signs of changed mental status, but no signs of recovery. She remains completely gaze avoidant, and is now making slightly more muslim remarks and subvocalizing. She has not attended groups. She is medication compliant with Seroquel. Collateral reports indicate her marriage may be ending. Family in [place] is concerned that her current presentation is of a severe relapse into her psychotic illness. 05.11.17 Sunita has shown notable improvement in mental status with good eye contact along with overal better engagement in interview. She was seen by Dr Grande of ob-telemetry technician today to review moving forward with a safe in the face of treatment of her mental illness. We will be collaborating with her parents to attempt to arrange for discharge to [facility] to be with them. Plan - Plan Treatment Plan: Name: SUNITA DAVIES Birthdate: 1985 [id number] Continue Seroquel dose at 400 mg at bedtime. Monitor MS and safety. Encourage groups/milieu. Dispo preferred to be to [place] to be with parents. Medications: Current Medications Multivitamins ( Vitamin Tab*) 1 tab PO DAILY [facility] Last Admin: 05/11/16 08:19 Dose: 1 tab Quetiapine Fumarate (Seroquel Tab*) 400 mg PO BEDTIME [facility] Last Admin: 05/10/16 20:13 Dose: 400 mg - Discharge Plan Discharge Plan: Outpatient Follow Up
[2016-05-11] MEDS: QUEtiapine TAB* 100 MG PO SCH (20:17)
[2016-05-12] MEDS: Prenatal Vitamin TAB PO SCH (08:26)
[2016-05-12] MEDS: QUEtiapine TAB* 100 MG PO SCH (20:07)
[2016-05-13] MEDS: Prenatal Vitamin TAB PO SCH (09:00)
--- NOTE | 2016-05-13 16:09 | PN ---
Subjective - Subjective Service Type: 28434 Hosp care 15 min low complexity Subjective: Sunita continues to show solid signs of improvement, with subjective report in agreement with observation. She has no physical complaints. Main issue is placement, and she understands this. Objective - Appearance Appearance: Healthy Appearing Hygiene: Normal Grooming: Well Kept - Behavior Psychomotor Activities: Normal - Attitude and Relatedness Attitude and Relatedness: Well Related Eye Contact: Good - Speech Quality: Unpressured Latencies: Normal Quantity: Appropriate - Mood Patient's Decription of Mood: "Good" - Affect Observed Affect: Good Affect Consistent with: Euthymia - Thought Process Patient's Thought Process: Coherent, Goal Directed Thought Content: No Passive Wish, No Suicidal Planning, No Homicidal Ideation, No Paranoid Ideation - Sensorium Experiencing Hallucinations: No, Sensorium is Clear Type of Hallucinations: Visual: No, Auditory: No, Command: No - Level of Consciousness Orientation: Yes Intact, Yes Orientated to Time, Yes Orientated to Place, Yes Orientated to Person - Impulse Control Impulse Control: Intact - Insight and Judgement Insight and Judgement: Fair - Group Participation Particating in Group Activities: Yes Group Participation Comments: but very few - Medication Management Medication Management Adherence: Yes Assessment - Assessment Merits Inpatient Hospitalization: For Stabilization, Consolidate Improvements, For Discharge Planning Inpatient DSM-IV Dx: Schizoaffective disorder, bipolar type. Clinical Impression: Ms. Davies is a 31-year-old woman who has reportedly been hospitalized about ten times for schizoaffective disorder, bipolar type, per report to the emergency department last model department supervisor by her parents. She is , and this will pose some challenges for her treatment here. I will ask an casino porter here to come to meet with her to talk about the risks of medications that would be beneficial for treatment of her exacerbation of her schizoaffective disorder, including lithium, Seroquel, Zyprexa and other antipsychotic medications, also antidepressant medications. I would like for her to hear from an expert in the effects of these medications on development so that she can make a fully informed decision as to how she would want to treat her exacerbation of illness at the same time as she carries her to term, which she says she wants to do. Her time away from her from September to February may raise issues with regard to paternity depending on the result of an U/S. We will be gathering further collateral from the family. We will be encouraging her to make use of the therapeutic milieu and groups. Aftercare will likely be to a community health clinic. 12.16 Sunita today appears calm but vacant. She has little to say in response to questions and offers no spontaneous communication. Awaiting effect of Seroquel as we titrate up dose. Awaiting collateral fax from parents this evening. 12..16 Remains calm with impoverished thought. Agrees to casino porter consult. Not attending groups, saying day room is locked when she tries to join groups. Compliant with Seroquel. 05.02.16 Attending about 1/2 of groups. Still virtually no eye contact, but slightly more engaged in interview. Med compliant. Calm and cooperative, but with impoverished thought. 12.16 Sunita has shown few signs of improving organization of thought and behavior. U/S shows a 6 week . No fax outlining history of psychiatric care received from parents. 30.16 Sunita is showing some signs of changed mental status, but no signs of recovery. She remains completely gaze avoidant, and is now making slightly more bahai remarks and subvocalizing. She has not attended groups. She is medication compliant with Seroquel. Collateral reports indicate her marriage may be ending. Family in [place] is concerned that her current presentation is of a severe relapse into her psychotic illness. 1.4.17 Sunita has shown notable improvement in mental status with good eye contact along with overal better engagement in interview. She was seen by Dr Grande of ob-heating element repairer today to review moving forward with a safe in the face of treatment of her mental illness. We will be collaborating with her parents to attempt to arrange for discharge to [facility] to be with them. 1.6.17 Sunita continues to show gains and looks stable toward discharge next week. May need to return to apartment that she feels unsafe in. Parents won't take her in in [facility]. Plan - Plan Treatment Plan: Name: SUNITA DAVIES Birthdate: 1985 [id number] Continue Seroquel dose at 400 mg at bedtime. Monitor MS and safety. Encourage groups/milieu. Dispo cannot be to [place] to be with parents, so will have to discharge to most stable housing we can get her in this area. Medications: Current Medications Multivitamins ( Vitamin Tab*) 1 tab PO DAILY [facility] Last Admin: 05/13/16 09:00 Dose: 1 tab Quetiapine Fumarate (Seroquel Tab*) 400 mg PO BEDTIME [facility] Last Admin: 05/12/16 20:07 Dose: 400 mg - Discharge Plan Discharge Plan: Outpatient Follow Up Outpatient Program: [facility]
[2016-05-13] MEDS: QUEtiapine TAB* 100 MG PO SCH (21:36)
[2016-05-14] MEDS: Prenatal Vitamin TAB PO SCH (09:18)
[2016-05-14] MEDS: QUEtiapine TAB* 100 MG PO SCH (21:21)
[2016-05-15] MEDS: Prenatal Vitamin TAB PO SCH (09:42)
[2016-05-15] MEDS: QUEtiapine TAB* 100 MG PO SCH (21:21)
[2016-05-16] MEDS: Prenatal Vitamin TAB PO SCH (09:51)
--- NOTE | 2016-05-16 11:59 | PN ---
[facility]: Group Therapy Note - Service Type Service Type: 86201 Group Psychotherapy - Cognitive Behavioral Group Therapy ( CBT):Patient was attentive and participatory in CBT programming this morning, and remained in good behavioral control. Patient expressed positive insights regarding relevant treatment interventions and goals.
--- NOTE | 2016-05-16 12:56 | PN ---
Subjective - Subjective Service Type: [id number] Hosp care 15 min low complexity Subjective: Sunita continues to make good eye contact. She would like for us to reach out to her parents about them coming here to support her. She feels she needs better domiciling than she currently has available. She is concerned about a marijuana allergy being problematic if she lives in [place], where she says there is a lot of it in the air. She has no complaints about meds. Objective - Appearance Appearance: Well Developed/Nourished, Healthy Appearing Dysmorphic Features: No Hygiene: Normal Grooming: Well Kept - Behavior Psychomotor Activities: Normal Exhibits Abnormal Movement: No - Attitude and Relatedness Attitude and Relatedness: Cooperative Eye Contact: Good - Speech Quality: Unpressured Latencies: Normal Quantity: Appropriate - Mood Patient's Decription of Mood: "Good" - Affect Observed Affect: Good Affect Consistent with: Euthymia - Thought Process Patient's Thought Process: Coherent, Goal Directed Thought Content: No Passive Wish, No Suicidal Planning, No Homicidal Ideation, No Paranoid Ideation - Sensorium Experiencing Hallucinations: No, Sensorium is Clear Type of Hallucinations: Visual: No, Auditory: No, Command: No - Level of Consciousness Level of Consciousness: Alert Orientation: Yes Intact, Yes Orientated to Time, Yes Orientated to Place, Yes Orientated to Person - Impulse Control Impulse Control: Intact - Insight and Judgement Insight and Judgement: Fair - Group Participation Particating in Group Activities: Yes Group Participation Comments: but declining most groups - Medication Management Medication Management Adherence: Yes Assessment - Assessment Merits Inpatient Hospitalization: For Stabilization, Consolidate Improvements, For Discharge Planning, Pending Safe DC Plan Inpatient DSM-IV Dx: Schizoaffective disorder, bipolar type. Clinical Impression: Ms. Davies is a 31-year-old woman who has reportedly been hospitalized about ten times for schizoaffective disorder, bipolar type, per report to the emergency department jewel hole cornerer by her parents. She is , and this will pose some challenges for her treatment here. I will ask an scientific aide here to come to meet with her to talk about the risks of medications that would be beneficial for treatment of her exacerbation of her schizoaffective disorder, including lithium, Seroquel, Zyprexa and other antipsychotic medications, also antidepressant medications. I would like for her to hear from an expert in the effects of these medications on development so that she can make a fully informed decision as to how she would want to treat her exacerbation of illness at the same time as she carries her to term, which she says she wants to do. Her time away from her from September to February may raise issues with regard to paternity depending on the result of an U/S. We will be gathering further collateral from the family. We will be encouraging her to make use of the therapeutic milieu and groups. Aftercare will likely be to a [facility] clinic. 04.28.16 Sunita today appears calm but vacant. She has little to say in response to questions and offers no spontaneous communication. Awaiting effect of Seroquel as we titrate up dose. Awaiting collateral fax from parents this evening. 04.29.16 Remains calm with impoverished thought. Agrees to scientific aide consult. Not attending groups, saying day room is locked when she tries to join groups. Compliant with Seroquel. 05.02.16 Attending about 1/2 of groups. Still virtually no eye contact, but slightly more engaged in interview. Med compliant. Calm and cooperative, but with impoverished thought. 05.03.16 Sunita has shown few signs of improving organization of thought and behavior. U/S shows a 6 week . No fax outlining history of psychiatric care received from parents. 30.16 Sunita is showing some signs of changed mental status, but no signs of recovery. She remains completely gaze avoidant, and is now making slightly more orthodox remarks and subvocalizing. She has not attended groups. She is medication compliant with Seroquel. Collateral reports indicate her marriage may be ending. Family in [place] is concerned that her current presentation is of a severe relapse into her psychotic illness. 1.4.17 Sunita has shown notable improvement in mental status with good eye contact along with overal better engagement in interview. She was seen by Dr Grande of ob-cooling room attendant today to review moving forward with a safe in the face of treatment of her mental illness. We will be collaborating with her parents to attempt to arrange for discharge to [facility] to be with them. 1.6.17 Sunita continues to show gains and looks stable toward discharge next week. May need to return to apartment that she feels unsafe in. Parents won't take her in in [facility]. 1.9.17 Gains seem solid, but concern about living in [place] due to marijuana allergy may be sign that thoughts remain disordered to a degree. Main issue remains firming up adequate disposition for this woman with schizoaffective disorder. Plan - Plan Treatment Plan: Name: SUNITA DAVIES Birthdate: 1985 [id number] Continue Seroquel dose at 400 mg at bedtime. Monitor MS and safety. Encourage groups/milieu. Dispo cannot be to [place] to be with parents, so will have to discharge to most stable housing we can get her in this area. Medications: Current Medications Multivitamins ( Vitamin Tab*) 1 tab PO DAILY [facility] Last Admin: 05/16/16 09:51 Dose: 1 tab Quetiapine Fumarate (Seroquel Tab*) 400 mg PO BEDTIME [facility] Last Admin: 05/15/16 21:21 Dose: 400 mg - Discharge Plan Discharge Plan: Outpatient Follow Up
[2016-05-16] MEDS: QUEtiapine TAB* 100 MG PO SCH (21:06)
[2016-05-17] MEDS: Prenatal Vitamin TAB PO SCH (10:49)
[2016-05-17] MEDS: QUEtiapine TAB* 100 MG PO SCH (21:55)
[2016-05-18] MEDS: Prenatal Vitamin TAB PO SCH (09:56)
--- NOTE | 2016-05-18 17:36 | PN ---
Subjective - Subjective Service Type: 14513 Hosp care 15 min low complexity Subjective: Sunita reports doing well here, and is looking forward to discharge soon, when housing is arranged. She has no complaints. Objective - Appearance Appearance: Healthy Appearing Dysmorphic Features: No Hygiene: Normal Grooming: Well Kept - Behavior Psychomotor Activities: Normal Exhibits Abnormal Movement: No - Attitude and Relatedness Attitude and Relatedness: Well Related Eye Contact: Good - Speech Quality: Unpressured Latencies: Normal Quantity: Appropriate - Mood Patient's Decription of Mood: "Alright" - Affect Observed Affect: Good Affect Consistent with: Euthymia - Thought Process Patient's Thought Process: Coherent, Goal Directed Thought Content: No Passive Wish, No Suicidal Planning, No Homicidal Ideation, No Paranoid Ideation - Sensorium Experiencing Hallucinations: No, Sensorium is Clear Type of Hallucinations: Visual: No, Auditory: No, Command: No - Level of Consciousness Orientation: Yes Intact, Yes Orientated to Time, Yes Orientated to Place, Yes Orientated to Person - Impulse Control Impulse Control: Intact - Insight and Judgement Insight and Judgement: Fair - Group Participation Particating in Group Activities: Yes - Medication Management Medication Management Adherence: Yes Assessment - Assessment Merits Inpatient Hospitalization: Consolidate Improvements, For Discharge Planning Inpatient DSM-IV Dx: Schizoaffective disorder, bipolar type. Clinical Impression: Ms. Davies is a 31-year-old woman who has reportedly been hospitalized about ten times for schizoaffective disorder, bipolar type, per report to the emergency department analysis evaluator by her parents. She is , and this will pose some challenges for her treatment here. I will ask an metal coater here to come to meet with her to talk about the risks of medications that would be beneficial for treatment of her exacerbation of her schizoaffective disorder, including lithium, Seroquel, Zyprexa and other antipsychotic medications, also antidepressant medications. I would like for her to hear from an expert in the effects of these medications on development so that she can make a fully informed decision as to how she would want to treat her exacerbation of illness at the same time as she carries her to term, which she says she wants to do. Her time away from her from September to February may raise issues with regard to paternity depending on the result of an U/S. We will be gathering further collateral from the family. We will be encouraging her to make use of the therapeutic milieu and groups. Aftercare will likely be to a community health clinic. 12.22.16 Sunita today appears calm but vacant. She has little to say in response to questions and offers no spontaneous communication. Awaiting effect of Seroquel as we titrate up dose. Awaiting collateral fax from parents this evening. 12.23.16 Remains calm with impoverished thought. Agrees to metal coater consult. Not attending groups, saying day room is locked when she tries to join groups. Compliant with Seroquel. 12.26.16 Attending about 1/2 of groups. Still virtually no eye contact, but slightly more engaged in interview. Med compliant. Calm and cooperative, but with impoverished thought. 12.27.16 Sunita has shown few signs of improving organization of thought and behavior. U/S shows a 6 week . No fax outlining history of psychiatric care received from parents. 12.30.16 Sunita is showing some signs of changed mental status, but no signs of recovery. She remains completely gaze avoidant, and is now making slightly more sabianism remarks and subvocalizing. She has not attended groups. She is medication compliant with Seroquel. Collateral reports indicate her marriage may be ending. Family in [place] is concerned that her current presentation is of a severe relapse into her psychotic illness. 1.4.17 Sunita has shown notable improvement in mental status with good eye contact along with overal better engagement in interview. She was seen by Dr Grande of ob-obstetrics gynecology md today to review moving forward with a safe in the face of treatment of her mental illness. We will be collaborating with her parents to attempt to arrange for discharge to [facility] to be with them. 1.6.17 Sunita continues to show gains and looks stable toward discharge next week. May need to return to apartment that she feels unsafe in. Parents won't take her in in [facility]. 1.9.17 Gains seem solid, but concern about living in [place] due to marijuana allergy may be sign that thoughts remain disordered to a degree. Main issue remains firming up adequate disposition for this woman with schizoaffective disorder. 1.11.17 Continues to be bright and free of any sign of continued disorganization of thought process. Looking forward to discharge once housing and aftercare are set up. Dr Grande of Ob-Hr Consultant recommends f/u with [facility]OM[facility] and her office. Plan - Plan Treatment Plan: Name: SUNITA DAVIES Birthdate: 1985 [id number] Continue Seroquel dose at 400 mg at bedtime. Monitor MS and safety. Encourage groups/milieu. Dispo cannot be to [place] to be with parents, so will have to discharge to most stable housing we can get her in this area. F/U with MOMS and Dr Grande's outpatient office. Medications: Current Medications Multivitamins ( Vitamin Tab*) 1 tab PO DAILY [facility] Last Admin: 05/18/16 09:56 Dose: 1 tab Quetiapine Fumarate (Seroquel Tab*) 400 mg PO BEDTIME [facility] Last Admin: 05/17/16 21:55 Dose: 400 mg - Discharge Plan Discharge Plan: [facility]
[2016-05-18] MEDS: QUEtiapine TAB* 100 MG PO SCH (21:07)
[2016-05-19] MEDS: Prenatal Vitamin TAB PO SCH (09:14)
--- NOTE | 2016-05-19 17:38 | PN ---
Subjective - Subjective Service Type: 64569 Hosp care 15 min low complexity Subjective: No complaints today. Pleasant and even cheerful, though with some signs of continued mild confusion/thought disorder. Objective - Appearance Appearance: Healthy Appearing Dysmorphic Features: No Hygiene: Normal Grooming: Well Kept - Behavior Psychomotor Activities: Normal Exhibits Abnormal Movement: No - Attitude and Relatedness Attitude and Relatedness: Cooperative Eye Contact: Good - Speech Quality: Unpressured Latencies: Normal Quantity: Appropriate - Mood Patient's Decription of Mood: "Good" - Affect Observed Affect: Good Affect Consistent with: Euthymia - Thought Process Patient's Thought Process: Coherent - though mildly confused, Goal Directed Thought Content: No Passive Wish, No Suicidal Planning, No Homicidal Ideation, No Paranoid Ideation - Sensorium Experiencing Hallucinations: No, Sensorium is Clear Type of Hallucinations: Visual: No, Auditory: No, Command: No - Level of Consciousness Level of Consciousness: Alert Orientation: Yes Intact, Yes Orientated to Time, Yes Orientated to Place, Yes Orientated to Person - Impulse Control Impulse Control: Intact - Insight and Judgement Insight and Judgement: Fair - Group Participation Particating in Group Activities: Yes Group Participation Comments: but attending less than 1/2 - Medication Management Medication Management Adherence: Yes Assessment - Assessment Merits Inpatient Hospitalization: Consolidate Improvements, For Discharge Planning Inpatient DSM-IV Dx: Schizoaffective disorder, bipolar type. Clinical Impression: Ms. Davies is a 31-year-old woman who has reportedly been hospitalized about ten times for schizoaffective disorder, bipolar type, per report to the emergency department restaurant culinary manager by her parents. She is , and this will pose some challenges for her treatment here. I will ask an undercover operator here to come to meet with her to talk about the risks of medications that would be beneficial for treatment of her exacerbation of her schizoaffective disorder, including lithium, Seroquel, Zyprexa and other antipsychotic medications, also antidepressant medications. I would like for her to hear from an expert in the effects of these medications on development so that she can make a fully informed decision as to how she would want to treat her exacerbation of illness at the same time as she carries her to term, which she says she wants to do. Her time away from her from September to February may raise issues with regard to paternity depending on the result of an U/S. We will be gathering further collateral from the family. We will be encouraging her to make use of the therapeutic milieu and groups. Aftercare will likely be to a community health clinic. 12.22.16 Sunita today appears calm but vacant. She has little to say in response to questions and offers no spontaneous communication. Awaiting effect of Seroquel as we titrate up dose. Awaiting collateral fax from parents this evening. 12.23.16 Remains calm with impoverished thought. Agrees to undercover operator consult. Not attending groups, saying day room is locked when she tries to join groups. Compliant with Seroquel. 12..16 Attending about 1/2 of groups. Still virtually no eye contact, but slightly more engaged in interview. Med compliant. Calm and cooperative, but with impoverished thought. 12.27.16 Sunita has shown few signs of improving organization of thought and behavior. U/S shows a 6 week . No fax outlining history of psychiatric care received from parents. 1230.16 Sunita is showing some signs of changed mental status, but no signs of recovery. She remains completely gaze avoidant, and is now making slightly more latter-day remarks and subvocalizing. She has not attended groups. She is medication compliant with Seroquel. Collateral reports indicate her marriage may be ending. Family in [place] is concerned that her current presentation is of a severe relapse into her psychotic illness. 1.4.17 Sunita has shown notable improvement in mental status with good eye contact along with overal better engagement in interview. She was seen by Dr Grande of ob-obstetrics gynecology physician today to review moving forward with a safe in the face of treatment of her mental illness. We will be collaborating with her parents to attempt to arrange for discharge to [facility] to be with them. 1.6.17 Sunita continues to show gains and looks stable toward discharge next week. May need to return to apartment that she feels unsafe in. Parents won't take her in in [facility]. 1.9.17 Gains seem solid, but concern about living in [place] due to marijuana allergy may be sign that thoughts remain disordered to a degree. Main issue remains firming up adequate disposition for this woman with schizoaffective disorder. 1.11.17 Continues to be bright and free of any sign of continued disorganization of thought process. Looking forward to discharge once housing and aftercare are set up. Dr Grande of Ob-Exploration Driller recommends f/u with MOMS and her office. 05.19.16 Awaiting word from production planner of stable housing arrangements. Will f/u with MOMS, Ob-obstetrics gynecology physician, [facility]. would benefit from case management. Plan - Plan Treatment Plan: Name: SUNITA DAVIES Birthdate: 1985 [id number] Continue Seroquel dose at 400 mg at bedtime. Monitor MS and safety. Encourage groups/milieu. Dispo cannot be to [place] to be with parents, so will have to discharge to most stable housing we can get her in this area. F/U with MOMS and Dr Grande's outpatient office. Medications: Current Medications Multivitamins ( Vitamin Tab*) 1 tab PO DAILY [facility] Last Admin: 05/19/16 09:14 Dose: 1 tab Quetiapine Fumarate (Seroquel Tab*) 400 mg PO BEDTIME [facility] Last Admin: 05/18/16 21:07 Dose: 400 mg - Discharge Plan Discharge Plan: Outpatient Follow Up Outpatient Program: [facility]
[2016-05-19] MEDS: QUEtiapine TAB* 100 MG PO SCH (21:31)
[2016-05-20] MEDS: Prenatal Vitamin TAB PO SCH (10:36)
[2016-05-20] MEDS ORDERED: Naproxen TAB* 250 MG PO PRN (12:38)
--- NOTE | 2016-05-20 12:41 | PN ---
Subjective - Subjective Service Type: 13672 Hosp care 15 min low complexity Subjective: Sunita had no spontaneous comments. Her only complaint was some low back pain. She asked if Aleve was considered safe in and I let her know risk can not be ruled out. Objective - Appearance Appearance: Thin Framed Dysmorphic Features: No Hygiene: Normal Grooming: Well Kept - Behavior Psychomotor Activities: Abnormal-Decreased - Attitude and Relatedness Attitude and Relatedness: Guarded Eye Contact: Good - Speech Quality: Unpressured Latencies: Long Quantity: Terse - Mood Patient's Decription of Mood: "Okay" - Affect Observed Affect: Unvariable Affect Consistent with: Euthymia - Thought Process Patient's Thought Process: Impoverished Thought Content: No Passive Wish, No Suicidal Planning, No Homicidal Ideation, No Paranoid Ideation - Sensorium Experiencing Hallucinations: No, Sensorium is Clear - Level of Consciousness Level of Consciousness: Alert - Impulse Control Impulse Control: Intact - Insight and Judgement Insight and Judgement: Fair Assessment - Assessment Merits Inpatient Hospitalization: For Ongoing Evaluation, For Discharge Planning , Pending Safe DC Plan Inpatient DSM-IV Dx: Schizoaffective disorder, bipolar type. Clinical Impression: 31-year-old woman with reportedly history of multiple psychiatric admissions, schizoaffective disorder, bipolar type. She was admitted after being evaluated with impairing psychosis. She has stabilized here. Psychosis is reduced. Medmgt. is with Seroquel. Discharge planning is complicated by homelessness. Plan - Plan Treatment Plan: Name: SUNITA DAVIES Birthdate: 1985 [id number] Medications: Current Medications Multivitamins ( Vitamin Tab*) 1 tab PO DAILY [facility] Last Admin: 05/20/16 10:36 Dose: 1 tab Naproxen (Naprosyn Tab*) 250 mg PO Q12H PRN PRN Reason: PAIN Quetiapine Fumarate (Seroquel Tab*) 400 mg PO BEDTIME [facility] Last Admin: 05/19/16 21:31 Dose: 400 mg - Discharge Plan Discharge Plan: Outpatient Follow Up
[2016-05-20] MEDS: QUEtiapine TAB* 100 MG PO SCH (21:19)
[2016-05-21] MEDS: Prenatal Vitamin TAB PO SCH (09:46)
[2016-05-21] MEDS: QUEtiapine TAB* 100 MG PO SCH (20:47)
[2016-05-22] MEDS: Prenatal Vitamin TAB PO SCH (10:35)
[2016-05-22] MEDS: QUEtiapine TAB* 100 MG PO SCH (22:35)
[2016-05-23] MEDS: Prenatal Vitamin TAB PO SCH (09:32)
--- NOTE | 2016-05-23 10:21 | PN ---
Subjective - Subjective Service Type: 14544 Hosp care 15 min low complexity Subjective: Sunita reports doing "fine." Back pain is improved. She made no delusional comments, denies perturbing thoughts, denied anyone is bothering her. Had no spontaneous comments. Denied concerns with setting or peers. Her only expressed need was more input from wild oyster harvester (I coordinated it). Objective - Appearance Appearance: Thin Framed Hygiene: Normal Grooming: Well Kept - Behavior Psychomotor Activities: Abnormal-Decreased - Attitude and Relatedness Attitude and Relatedness: Guarded Eye Contact: Good - Speech Quality: Unpressured Latencies: Normal Quantity: Terse - Mood Patient's Decription of Mood: "Fine" - Affect Observed Affect: Non-labile Affect Consistent with: Euthymia - Thought Process Patient's Thought Process: Impoverished Thought Content: No Passive Wish, No Suicidal Planning, No Homicidal Ideation, No Paranoid Ideation - Sensorium Experiencing Hallucinations: No, Sensorium is Clear - Level of Consciousness Level of Consciousness: Alert - Impulse Control Impulse Control: Intact - Insight and Judgement Insight and Judgement: Fair Assessment - Assessment Merits Inpatient Hospitalization: For Ongoing Evaluation, Consolidate Improvements, For Discharge Planning, Pending Safe DC Plan Inpatient DSM-IV Dx: Schizoaffective disorder, bipolar type. Clinical Impression: 31-year-old woman with reportedly history of multiple psychiatric admissions, schizoaffective disorder, bipolar type. She was admitted after being evaluated with impairing psychosis. Stabilized here. Psychosis is reduced. Medmgt. is with Seroquel. Discharge planning is complicated by homelessness. Plan - Plan Treatment Plan: Name: SUNITA DAVIES Birthdate: 1985 [id number] Medications: Current Medications Multivitamins ( Vitamin Tab*) 1 tab PO DAILY [facility] Last Admin: 05/23/16 09:32 Dose: 1 tab Naproxen (Naprosyn Tab*) 250 mg PO Q12H PRN PRN Reason: PAIN Quetiapine Fumarate (Seroquel Tab*) 400 mg PO BEDTIME [facility] Last Admin: 05/22/16 22:35 Dose: 400 mg - Discharge Plan Discharge Plan: Outpatient Follow Up
[2016-05-23] MEDS: QUEtiapine TAB* 100 MG PO SCH (21:33)
[2016-05-24] MEDS: Prenatal Vitamin TAB PO SCH (08:57)
[2016-05-24] MEDS: QUEtiapine TAB* 100 MG PO SCH (20:42)
[2016-05-25 08:12] VITALS: BP 103/56
[2016-05-25] MEDS: Prenatal Vitamin TAB PO SCH (09:12)
--- NOTE | 2016-05-25 11:01 | PN ---
Subjective - Subjective Service Type: 05915 Hosp care 15 min low complexity Subjective: Sunita continues to complain of lower back pain, otherwise no physical complaint. Remains pleasant over brief interaction, though staff reports more irritable yesterday, with some uncharacteristic snarkiness to her response to questions at one point. Today denies any active safety concerns or psychosis. Objective - Appearance Appearance: Healthy Appearing Dysmorphic Features: No Hygiene: Normal Grooming: Well Kept - Behavior Psychomotor Activities: Normal Exhibits Abnormal Movement: No - Attitude and Relatedness Attitude and Relatedness: Cooperative Eye Contact: Good - Speech Quality: Unpressured Latencies: Normal Quantity: Appropriate - Mood Patient's Decription of Mood: "Good" - Affect Observed Affect: Good Affect Consistent with: Euthymia - Thought Process Patient's Thought Process: Coherent, Goal Directed Thought Content: No Passive Wish, No Suicidal Planning, No Homicidal Ideation, No Paranoid Ideation - Sensorium Experiencing Hallucinations: No, Sensorium is Clear Type of Hallucinations: Visual: No, Auditory: No, Command: No - Level of Consciousness Level of Consciousness: Alert Orientation: Yes Intact, Yes Orientated to Time, Yes Orientated to Place, Yes Orientated to Person - Impulse Control Impulse Control: Intact - Insight and Judgement Insight and Judgement: Fair - Group Participation Particating in Group Activities: No - Medication Management Medication Management Adherence: Yes Assessment - Assessment Merits Inpatient Hospitalization: Consolidate Improvements, For Discharge Planning Inpatient DSM-IV Dx: Schizoaffective disorder, bipolar type. Clinical Impression: Ms. Davies is a 31-year-old woman who has reportedly been hospitalized about ten times for schizoaffective disorder, bipolar type, per report to the emergency department payment analyst by her parents. She is , and this will pose some challenges for her treatment here. I will ask an supervisor soldering here to come to meet with her to talk about the risks of medications that would be beneficial for treatment of her exacerbation of her schizoaffective disorder, including lithium, Seroquel, Zyprexa and other antipsychotic medications, also antidepressant medications. I would like for her to hear from an expert in the effects of these medications on development so that she can make a fully informed decision as to how she would want to treat her exacerbation of illness at the same time as she carries her to term, which she says she wants to do. Her time away from her from September to February may raise issues with regard to paternity depending on the result of an U/S. We will be gathering further collateral from the family. We will be encouraging her to make use of the therapeutic milieu and groups. Aftercare will likely be to a [facility]. 12.22.16 Sunita today appears calm but vacant. She has little to say in response to questions and offers no spontaneous communication. Awaiting effect of Seroquel as we titrate up dose. Awaiting collateral fax from parents this evening. 12.23.16 Remains calm with impoverished thought. Agrees to supervisor soldering consult. Not attending groups, saying day room is locked when she tries to join groups. Compliant with Seroquel. 12..16 Attending about 1/2 of groups. Still virtually no eye contact, but slightly more engaged in interview. Med compliant. Calm and cooperative, but with impoverished thought. 12.27.16 Sunita has shown few signs of improving organization of thought and behavior. U/S shows a 6 week . No fax outlining history of psychiatric care received from parents. 12.30.16 Sunita is showing some signs of changed mental status, but no signs of recovery. She remains completely gaze avoidant, and is now making slightly more denominational remarks and subvocalizing. She has not attended groups. She is medication compliant with Seroquel. Collateral reports indicate her marriage may be ending. Family in [place] is concerned that her current presentation is of a severe relapse into her psychotic illness. 1.4.17 Sunita has shown notable improvement in mental status with good eye contact along with overal better engagement in interview. She was seen by Dr Grande of ob-canvass manager today to review moving forward with a safe in the face of treatment of her mental illness. We will be collaborating with her parents to attempt to arrange for discharge to [facility] to be with them. 1.6.17 Sunita continues to show gains and looks stable toward discharge next week. May need to return to apartment that she feels unsafe in. Parents won't take her in in [facility]. 1.9.17 Gains seem solid, but concern about living in [place] due to marijuana allergy may be sign that thoughts remain disordered to a degree. Main issue remains firming up adequate disposition for this woman with schizoaffective disorder. 1.11.17 Continues to be bright and free of any sign of continued disorganization of thought process. Looking forward to discharge once housing and aftercare are set up. Dr Grande of Ob-Remote Sensing Scientist recommends f/u with MOMS and her office. 05.19.16 Awaiting word from equipment planner of stable housing arrangements. Will f/u with MOMS, Ob-canvass manager, [facility]. would benefit from case management. 05.25.16 Will meet today with Advocacy desk reporter regarding placement into safe house. Housing remains primary impediment to discharge. Unstable housing poses risk for stress-induced relapse. Plan - Plan Treatment Plan: Name: SUNITA DAVIES Birthdate: 1985 [id number] Continue Seroquel dose at 400 mg at bedtime. Monitor MS and safety. Encourage groups/milieu. Dispo cannot be to [place] to be with parents, so will have to discharge to most stable housing we can get her in this area. F/U with MOMS and Dr Grande's outpatient office. Medications: Current Medications Multivitamins ( Vitamin Tab*) 1 tab PO DAILY [facility] Last Admin: 05/25/16 09:12 Dose: 1 tab Naproxen (Naprosyn Tab*) 250 mg PO Q12H PRN PRN Reason: PAIN Quetiapine Fumarate (Seroquel Tab*) 400 mg PO BEDTIME [facility] Last Admin: 05/24/16 20:42 Dose: 400 mg - Discharge Plan Discharge Plan: Outpatient [facility]
[2016-05-25] MEDS: QUEtiapine TAB* 100 MG PO SCH (21:27)
[2016-05-26] MEDS: Prenatal Vitamin TAB PO SCH (09:44)
--- NOTE | 2016-06-02 14:14 | PN ---
Progress Note - Progress Note Note: Brief Discharge Summary Ms Connors was transferred to the medical floor on 05.26.16 under [facility] level of care for safe domiciling as she awaited placement into housing arranged for her by the [facility]. As she is and has Schizoaffective Disorder, she was felt to be at too high a risk if discharged to assisted. For further details, please see the discharge summary under my name entered into that medical floor admission following the [facility] admission.
== END 2016-05-26 19:30 | disposition short-term general hospital (02) | DRG 566 ==
LOC: ED 12:03 → BSU 20:00
PROVIDERS: ADMIT Psychiatry & Neurology Psychiatry; ATTEND Psychiatry & Neurology Psychiatry
PROC: 4A1HX4Z Monitoring of Products of Conception, Cardiac Electrical Activity, External Approach (ICD-10-PCS; 2016-04-29)
PROC: GZHZZZZ Group Psychotherapy (ICD-10-PCS; principal; 2016-05-11)
DX: O99.341 Other mental disorders complicating pregnancy, first trimester (principal); F25.0 Schizoaffective disorder, bipolar type; Z87.891 Personal history of nicotine dependence; Z88.8 Allergy status to other drugs, medicaments and biological substances; Z3A.01 Less than 8 weeks gestation of pregnancy
CPT/HCPCS: 36415; 76801; 80053; 80301; 80320; 80329; 81003; 84443; 84702; 85025; 86592; 86703; 86762; 87340; 87491; 87591; 90853; 99222; 99231; 99238; A9270-GY; G0479; G0480

== ENCOUNTER 2016-05-26 16:09 | Inpatient (IN) | payer MEDICAID, OTHER ==
[2016-05-26] MEDS ORDERED: Acetaminophen TAB* 325 MG PO PRN (16:41)
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
[2016-05-26] MEDS: QUEtiapine TAB* 100 MG PO SCH (21:28)
[2016-05-27] MEDS: Prenatal Vitamin TAB PO SCH (09:24)
--- NOTE | 2016-05-27 14:24 | PN ---
Subjective Date of Service: 05/27/16 Interval History: Patient seen and examined at bedside. She reports being tired and wants to take a nap. Denies chest pain, SOB, abd pain, n/v. States she has intermittent back pain but "this isn't new." Family History: Unchanged from Admission Social History: Unchanged from Admission Past Medical History: Unchanged from Admission Objective Active Medications: Acetaminophen (Tylenol Tab*) 650 mg PO Q4H PRN PRN Reason: FEVER/HEADACHE Multivitamins ( Vitamin Tab*) 1 tab PO DAILY [facility] Last Admin: 05/27/16 09:24 Dose: 1 tab Quetiapine Fumarate (Seroquel Tab*) 400 mg PO BEDTIME [facility] Last Admin: 05/26/16 21:28 Dose: 400 mg Vital Signs 05/26/16 05/27/16 23:35 07:53 Temperature 97.9 F 98.3 F Pulse Rate 85 80 Respiratory 16 16 Rate Blood Pressure 101/57 99/62 (mmHg) O2 Sat by Pulse 99 99 Oximetry Oxygen Devices in Use Now: None Appearance: Young female, lying in bed, in NAD Respiratory: Symmetrical Chest Expansion and Respiratory Effort, Clear to Auscultation Cardiovascular: NL Sounds; No Murmurs; No JVD, RRR Abdominal: NL Sounds; No Tenderness; No Distention Extremities: No Edema Skin: No Rash or Ulcers Neurological: Alert and Oriented x 3 Nutrition: Taking PO's Assess/Plan/Problems-Billing Assessment: Ms. Connors is a 31 yo female with a PMH of (gestation 10 weeks) and schizoaffective disorder, bipolar type who was transferred to the medicine service on 05/26/16 as a [facility] admission while looking for outpatient placement/safe discharge plan. - Patient Problems (1) Schizoaffective disorder, bipolar type Code(s): F25.0 - SCHIZOAFFECTIVE DISORDER, BIPOLAR TYPE Comment: Stable, continue Seroquel. Appreciate psychiatric input. (2) Status: Acute Comment: US 04/29/16 showed solitary intrauterine with CAMRYN 12/23/16, which puts her at 10 weeks, 0 days gestational age. Patient should follow-up with [place] gas station cashier and [facility]. Appreciate guidance from OB. (3) DVT prophylaxis Code(s): [id number] - Comment: NILSON smith, encourage ambulation. Status and Disposition: Inpatient [facility] admission. [facility].
--- NOTE | 2016-05-27 15:04 | PN ---
Progress Note - Progress Note Note: This brief note is in response to requested consultation on Ms Connors. Facts of her psychiatric case unchanged from BSU admission. Please refer to notes from that visit. On interview today, she has no medical or psychiatric complaints. She reports "good" mood with congruent bright affect. She is enjoying watching a show about puppies on animal [employer]. She denies any AH/VH/PI/SI/HI. She reports her back is feeling better, and she is sleeping well. She is looking forward to discharge to a bed at the [facility] on Monday. Diagnosis: Schizoaffective Disorder, bipolar type, in good control on Seroquel 400 mg po qHS. Please call the on-call psychiatrist if any acute psychiatric concerns arise over the weekend. I will see her again on Monday. She is doing well now with no complaints.
[2016-05-27] MEDS: QUEtiapine TAB* 100 MG PO SCH (21:28)
[2016-05-28] MEDS: Prenatal Vitamin TAB PO SCH (08:26)
[2016-05-28] MEDS: QUEtiapine TAB* 100 MG PO SCH (22:05)
[2016-05-29] MEDS: Prenatal Vitamin TAB PO SCH (08:11)
--- NOTE | 2016-05-29 08:39 | PN ---
Hospitalist Progress Note Nursing staff expressed concern that patient has been uncooperative and hostile toward staff, stating things like "You smell" and not allowing staff members to come into the room or use the white board. Sunita reports that she has increased sensitivity to smells, including personal perfumes, white board markers, and hand sanitizers and has asked that people not use those. She feels the staff has been very helpful. She reports increased appetite, and it has been noted that the patient has eaten most of the floor stock of mary crackers and has been ordering large amounts of food for her meal trays. We discussed having snacks sent up that she could enjoy throughout the day and understanding that the floor only has so much food available. She is agreeable to having snacks and states that this was done on the BSU as well. She denies back pain, CP, SOB, leg pain at this time. Patient encouraged to ambulate. She reports occasional nausea but reports the "snacks help." She is looking forward to discharge tomorrow. We discussed her following up with [facility] and [facility] for continued care. This is her first so she is "unsure" about many things. Plan for designated snacks for patient discussed with nursing. Appreciate psych input.
[2016-05-29] MEDS: QUEtiapine TAB* 100 MG PO SCH (21:11)
[2016-05-30 07:59] VITALS: BP 108/63
--- NOTE | 2016-05-30 08:31 | PN ---
Subjective Date of Service: 05/30/16 Interval History: Patient seen and examined at bedside. She is ambulating in the room and is pleasant in her greeting. She is packing up her belongings and preparing for discharge. She denies acute complaint, including CP, SOB, abd pain, back pain, n /v; however, she does report a runny nose. She is very concerned about having snacks to take with her; we made a plan for the patient to take her snacks from her tray and pack them. Family History: Unchanged from Admission Social History: Unchanged from Admission Past Medical History: Unchanged from Admission Objective Active Medications: Acetaminophen (Tylenol Tab*) 650 mg PO Q4H PRN PRN Reason: FEVER/HEADACHE Multivitamins ( Vitamin Tab*) 1 tab PO DAILY [facility] Last Admin: 05/29/16 08:11 Dose: 1 tab Quetiapine Fumarate (Seroquel Tab*) 400 mg PO BEDTIME [facility] Last Admin: 05/29/16 21:11 Dose: 400 mg Vital Signs 05/29/16 05/30/16 05/30/16 20:00 07:58 07:59 Temperature 98.7 F Pulse Rate 83 Respiratory 16 18 Rate Blood Pressure 108/63 (mmHg) O2 Sat by Pulse 99 Oximetry Oxygen Devices in Use Now: None Appearance: Female patient, ambulating in room, in NAD Eyes: PERRLA Ears/Nose/Mouth/Throat: Clear Oropharnyx, Mucous Membranes Moist Neck: NL Appearance and Movements; NL JVP Respiratory: Symmetrical Chest Expansion and Respiratory Effort, Clear to Auscultation Cardiovascular: NL Sounds; No Murmurs; No JVD, RRR Abdominal: NL Sounds; No Tenderness; No Distention Extremities: No Edema Skin: No Rash or Ulcers Neurological: Alert and Oriented x 3 Lines/Tubes/Other Access: Clean, Dry and Intact Peripheral IV Nutrition: Taking PO's Assess/Plan/Problems-Billing Assessment: Ms. Connors is a 31 yo female with a PMH of (gestation 10 weeks) and schizoaffective disorder, bipolar type who was transferred to the medicine service on 05/26/16 as a senior care admission while looking for outpatient placement/safe discharge plan. - Patient Problems (1) Schizoaffective disorder, bipolar type Code(s): F25.0 - SCHIZOAFFECTIVE DISORDER, BIPOLAR TYPE Comment: Stable, continue Seroquel. Appreciate psychiatric input. (2) Status: Acute Comment: US 04/29/16 showed solitary intrauterine with CAMRYN 12/23/16, which puts her at 10 weeks, 3 days gestational age. Patient should follow-up with [place] gold leaf laborer and [facility]. (3) DVT prophylaxis Code(s): [id number] - Comment: NILSON smith, encourage ambulation. Status and Disposition: Inpatient senior care admission. [facility] following psych follow-up.
[2016-05-30] MEDS: Prenatal Vitamin TAB PO SCH (08:55)
--- NOTE | 2016-05-30 11:31 | DS ---
Subjective - Subjective Service Types: [id number] [facility] Day Mgmt simple under 30 min Discharge Date: 05/30/16 Subjective: Sunita reports feeling safe and ready for discharge. She is looking forward to moving forward with followup care, to which she voices firm commitment. She has no psychiatric or medical complaints, and reports being in a good mood. She spoke with me cheerfully of having had a good weekend watching movies as she awaited her stable discharge plan to coalesce today. Objective - Appearance Appearance: Healthy Appearing Dysmorphic Features: No Hygiene: Normal Grooming: Well Kept - Behavior Psychomotor Activities: Normal Exhibits Abnormal Movement: No - Attitude and Relatedness Attitude and Relatedness: Well Related Eye Contact: Good - Speech Quality: Unpressured Latencies: Normal Quantity: Appropriate - Mood Patient's Decription of Mood: "Good" - Affect Observed Affect: Good Affect Consistent with: Euthymia - Thought Process Patient's Thought Process: Coherent, Goal Directed Thought Content: No Passive Wish, No Suicidal Planning, No Homicidal Ideation, No Paranoid Ideation - Sensorium Experiencing Hallucinations: No, Sensorium is Clear Type of Hallucinations: Visual: No, Auditory: No, Command: No - Level of Consciousness Level of Consciousness: Alert Orientation: Yes Intact, Yes Orientated to Time, Yes Orientated to Place, Yes Orientated to Person - Impulse Control Impulse Control: Intact - Insight and Judgement Insight and Judgement: Fair - Group Participation Particating in Group Activities: No Group Participation Comments: none available to her on medical floor as she awaited discharge on senior care care statue - Medication Management Medication Management Adherence: Yes Treatment Course & Assessment Clinical Course & Impression: Ms. Connors is a 31-year-old woman who has reportedly been hospitalized about ten times for schizoaffective disorder, bipolar type, per report to the emergency department aviation project engineer by her parents at the time of her admission to the BSU. For full details of the circumstances leading to her admission, please refer to my H&P from the admission to the B[facility] preceding this medical floor admission ot She is , and this poses some challenges for her treatment. She was seen by an software designer, Dr Grande, with whom she talked about the risks of medications that would be beneficial for treatment of her exacerbation of her schizoaffective disorder. She, Dr Grande and myself have agreed that monotherapy with Seroquel is good treatment for her schizoaffective disorder with adequately low risk of harm to her fetus. Early in her course, Sunita was disorganized in her behavior and thought, and made no eye contact. A critical turning point occurred when she started making eye contact while taking Seroquel 400 mg daily, and from that point on on that dose she continued to make gains in her cognitive/behavioral organization to the point that she demonstrated adequate self-care capacity to avoid harm. At no point before or during this admission has she endorsed any dangerous intent or plan. She is cleared for discharge following a few days on the medical floor awaiting an [facility] bed to give her sufficient supports in the community to reduce risk of stress induced relapse. Unfortunately, her parents report they cannot come here to help her until her mother is done with her obligations for the year as a school community relations coordinator, and their long-term home in [place] does not permit long-term guests apparently, so Sunita going there was not an option. It has been reported that her is filing for divorce, and so there is no support from him or his family now either. She will continue care with Dr Grande's [facility] outpatient office, though perhaps with another underwear cutter. She will also initiate care with [facility]. Merits Inpatient Hospitalization: No Clear for Discharge: Adequate Clinical Respons, Acceptable Safety Profile, Low Utility of Inpt Care Inpatient DSM-IV Dx: schizoaffective disorder, bipolar type - [place] III Medical Illness: none: she is - [place] IV Stressors: divorce, limited social supports Family: parents in [place] Primary Support Group: professional care providers, family secondary - [place] V [id number]: 63 Estimate of Highest-Past Year: 63 Discharge Planning - Discharge Planning Discharge Plan: Outpatient Follow Up Outpatient Program: [facility] Recommendations for Continuing Care: Medication Management, Psychotherapy, Specialty Followup - ob-supervisor color making Medications: Multivitamins ( Vitamin Tab*) 1 tab PO DAILY [facility] Last Admin: 05/30/16 08:55 Dose: 1 tab Quetiapine Fumarate (Seroquel Tab*) 400 mg PO BEDTIME [facility] Last Admin: 05/29/16 21:11 Dose: 400 mg Discharge Planning: Prescriptions provided for discharge [x] Yes, by Peyton Kebede REGRINDER OPERATOR [] No Follow up care details as per social work arrangements. Patient response to discharge plan: [x] eager for discharge [x] agreeable with discharge plan [] ambivalent about discharge [] disagrees with discharge today
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
== END 2016-05-30 14:50 | DRG 566 ==
LOC: MED 20:00
PROVIDERS: ADMIT Internal Medicine; ATTEND Internal Medicine
DX: O99.341 Other mental disorders complicating pregnancy, first trimester (principal); F25.0 Schizoaffective disorder, bipolar type; Z3A.10 10 weeks gestation of pregnancy; Z79.899 Other long term (current) drug therapy; Z91.018 Allergy to other foods
CPT/HCPCS: A9270-GY